=== PATIENT | male | born 1980 | race Caucasian/White ===

== ENCOUNTER 2020-10-12 16:40 | Emergency (ER) | payer OTHER, SELFPAY ==
[2020-10-12 17:00] VITALS: BP 124/90; PULSE 102; RESP 14; TEMP 36.2; O2SAT 99; BMI 23.6
--- NOTE | 2020-10-12 17:12 | HMH.EDUTC ---
[facility] Disposition Clinical Impression: Exposure to COVID-19 virus Disposition: Home, Self-Care Condition on Discharge: Good Instructions: Preventing the Spread of Coronavirus Discharge Instructions Additional Instructions: You have been tested for COVID19. Please isolate yourself as if you are positive until test results received. Referrals: Thierry Carrillo MD [Primary Care Provider] - Time of Disposition: 17:14 Medical Decision Making - Kel Inquiry Pt receiving controlled substance: No Orders (Tests/Meds): ORDERS Category Date Time Status Covid-19 Nasal PCR ([facility]) Routine Lab 10/12/20 16:44 Ordered [facility] HPI - General Stated complaint: cov test Time Seen by Provider: 10/12/20 17:12 - History of Present Illness Provider Complaint: Cough, congestion, runny nose, sore throat X 4 days. Exposed to COVID19 last week. No fever. No vomiting or diarrhea. Onset (ago): day(s) (4) Relieving factors: none Exacerbating factors: none Associated symptoms: denies other symptoms Treatments prior to arrival: none - Related Data Previous Rx's Medication Instructions Recorded Penicillin V Potassium 500 mg PO Q6H #28 tab 09/28/18 Penicillin V Potassium 500 mg PO Q6H 7 Days #28 tab 04/25/19 Allergies Allergy/AdvReac Type Severity Reaction Status Date / Time No Known Allergies Allergy Unverified 08/11/17 14:35 [facility] History - Hepatitis A Screen Attestation statement:: This patient has been screened for Hepatitis A risk factors. I have reviewed the patient's past medical history: Yes Medical History: Denies:: Diabetes Mellitus Type 1, Diabetes Mellitus Type 2 - Social History Smoking Status: Current every day smoker Tobacco Type: cigarettes # Packs/Day (cigarettes): 1 Alcohol Intake: never Occupational Status: employed Housing: house ROS Obtained: Yes All systems reviewed & no additional complaints - Constitutional Constitutional: Reports body ache, Reports chills, Reports headache(s) - ENT Ears, Nose, Mouth, and Throat: Reports nasal congestion, Reports sore throat - Respiratory Respiratory: Reports cough Physical Exam - General General appearance: alert, in no apparent distress - Head Head exam: normocephalic - Eye Eye exam: Present: PERRL - ENT ENT exam: Present: normal oropharynx - Respiratory Respiratory exam: Present: normal lung sounds bilaterally - Cardiovascular Cardiovascular exam: Present: regular rate, normal rhythm - Neurological Exam Neurological exam: Present: alert, oriented X3 - Psychiatric Psychiatric exam: Present: normal affect, normal mood - Skin Skin exam: Present: warm, dry, intact
[2020-10-12 17:27] VITALS: BP 124/90; PULSE 102; RESP 14; TEMP 36.2; O2SAT 99
--- NOTE | 2020-10-13 09:48 | PC.NURSE ---
PT NOTIFIED OF POSITIVE COVID RESULT
== END 2020-10-12 17:30 | disposition home or self-care (01) ==
PROVIDERS: Emergency Provider Physician Assistant; PCP Family Medicine
DX: U07.1 COVID-19 (principal); F17.210 Nicotine dependence, cigarettes, uncomplicated
CPT/HCPCS: 99202; G0463; U0003

== ENCOUNTER 2021-01-14 23:14 | Emergency (ER) | payer OTHER, SELFPAY ==
--- NOTE | 2021-01-14 23:07 | ECG_ITS ---
APPROVED REPORT Exam: Resting ECG HR:98 bpm ECG Measurements Heart Rate 98 AXES NE 126 P 59 QRSd 90 QRS 26 QT 352 T 43 QTc 449 Conclusion Sinus rhythm with premature atrial complexes with aberrant conduction Possible Left atrial enlargement Borderline ECG Electronically signed by : Thierry Cline, 01/19/2021 07:35:54
[2021-01-14 23:11] VITALS: BP 148/84; PULSE 95; RESP 17; TEMP 36.7; O2SAT 98; BMI 28.7
--- NOTE | 2021-01-14 23:15 | PC.NURSE ---
Pauline at bedside one-on-one with pt d/t suicidal ideation
--- NOTE | 2021-01-14 23:17 | CT_ITS ---
PROCEDURE INFORMATION: Exam: CT Head Without Contrast Exam date and time: 01/14/21 11:17 PM Age: 40 years old Clinical indication: Injury or trauma; Other: Atempted suicide by haning; Constriction/strangulation; Consciousness not specified; Injury date: 01/14/2021; Injury details: Attempted hanging; Additional info: Attempted to hang himself, raspy voice, neck pain. No visable ligature powell TECHNIQUE: Imaging protocol: Computed tomography of the head without contrast. Radiation optimization: All CT scans at this facility use at least one of these dose optimization techniques: automated exposure control; mA and/or kV adjustment per patient size (includes targeted exams where dose is matched to clinical indication); or iterative reconstruction. COMPARISON: No relevant prior studies available. FINDINGS: Brain: Normal. No hemorrhage. Unremarkable white matter. No mass effect. Cerebral ventricles: No ventriculomegaly. Bones/joints: Unremarkable. No acute fracture. Paranasal sinuses: Visualized sinuses are unremarkable. No fluid levels. Mastoid air cells: Visualized mastoid air cells are well aerated. Soft tissues: Unremarkable. IMPRESSION: No acute intracranial abnormality.
--- NOTE | 2021-01-14 23:17 | CT_ITS ---
PROCEDURE INFORMATION: Exam: CT Neck With Contrast Exam date and time: 01/14/21 11:17 PM Age: 40 years old Clinical indication: Injury or trauma; Other: Attempted hanging; Constriction/strangulation; Injury date: 01/14/2021; Injury details: Attempted suicide by hanging; Additional info: Attempted to hang himself raspy voice, neck pain, . no visable ligature powell TECHNIQUE: Imaging protocol: Computed tomography images of the neck with contrast. Radiation optimization: All CT scans at this facility use at least one of these dose optimization techniques: automated exposure control; mA and/or kV adjustment per patient size (includes targeted exams where dose is matched to clinical indication); or iterative reconstruction. Contrast material: ISOVUE; Contrast volume: 75 ml; Contrast route: IV; COMPARISON: No relevant prior studies available. FINDINGS: Nasopharynx: Unremarkable. Oropharynx: Unremarkable. No significant tonsillar enlargement. Hypopharynx: Unremarkable. Larynx: Unremarkable. Normal epiglottis. Retropharyngeal space: Unremarkable. Submandibular/Parotid glands: Normal. Glands are normal in size. Thyroid: Normal. No enlarged or calcified nodules. Lymph nodes: Unremarkable. No lymphadenopathy. Trachea: Visualized trachea is unremarkable. Lungs: Unremarkable as visualized. Bones/joints: Unremarkable. No acute fracture. Soft tissues: Unremarkable. No significant soft tissue swelling. IMPRESSION: No acute findings.
--- NOTE | 2021-01-14 23:17 | XR_ITS ---
PROCEDURE INFORMATION: Exam: XR Chest Exam date and time: 01/14/21 11:17 PM Age: 40 years old Clinical indication: Other: Attempted suicide by hanging; Additional info: Attempted si by hanging. Raspy voice and neck pain TECHNIQUE: Imaging protocol: XR of the chest. Views: 1 view. COMPARISON: No relevant prior studies available. FINDINGS: Lungs: Minimal lingular subsegmental atelectasis. Pleural spaces: Unremarkable. No pleural effusion. No pneumothorax. Heart/Mediastinum: Unremarkable. No cardiomegaly. Bones/joints: Unremarkable. IMPRESSION: Minimal lingular subsegmental atelectasis.
--- NOTE | 2021-01-14 23:35 | PC.NURSE ---
patient up for ct
[2021-01-14 23:48] LABS: Chloride 106 mmol/L (98-107)
[2021-01-14 23:49] LABS: Potassium 3.5 mmoL/L (3.5-5.1); Sodium 139 mmol/L (136-145)
[2021-01-14 23:51] LABS: Alanine Aminotransferase 26 U/L (12-78); Aspartate Amino Transferase 28 U/L (17-59); Basophils # 0.1 K/mm3 (0-0.2); Basophils % 0.9 % (0.1-2.0); Bilirubin,Unconjugated 0.2 mg/dL (0.0-1.1); Blood Urea Nitrogen 14 mg/dl (9-20); Creatinine Clearance Estimated 139 mL/min (50-200); Eosinophils # 0.2 K/mm3 (0.0-0.4); Estimated Glomerular Filt Rate 93 ml/min (>60); GFR (African American) 113 ML/MIN (>60); Hematocrit 43.6 % (42.0-52.0); Hemoglobin 14.7 g/dL (14.1-18.0); Lymphocytes # 2.4 K/mm3 (0.7-4.5); Lymphocytes % 30.2 % (10-50); Mean Corpuscular HGB Conc 33.8 g/dL (31.8-35.4); Mean Corpuscular Volume 85.9 fl (80-94); Mean Platelet Volume 7.9 fl (7.4-10.4); Monocytes # 0.7 K/mm3 (0.1-1.0); Monocytes % 8.1 % (1.7-9.3); Neutrophils # 4.8 K/mm3 (1.8-7.8); Platelet Count 266 K/mm3 (142-424); Red Blood Count 5.08 M/mm3 (4.60-6.20); Red Cell Distribution Width 13.6 % (11.5-17.5); White Blood Count 8.1 K/mm3 (4.8-10.8)
[2021-01-14 23:52] LABS: Albumin Level 4.1 g/dl (3.5-5.0); Alkaline Phosphatase 125 U/L (38-126); Anion Gap 11.5 mEq/L (5-15); Bilirubin,Direct 0.3 mg/dl (0.0-0.4); Bilirubin,Indirect 0.3 mg/dL (0.0-0.9); Bilirubin,Total 0.6 mg/dl (0.2-1.3); Calcium 8.6 mg/dl (8.4-10.2); Carbon Dioxide 25 mmol/L (22.0-30.0); Glucose 158 mg/dl (74-100); Total Protein,Serum 7.1 g/dl (6.3-8.2)
--- NOTE | 2021-01-14 23:52 | PC.NURSE ---
Pauline at bedside one-on-one with pt d/t suicidal ideation
--- NOTE | 2021-01-14 23:53 | PC.NURSE ---
patient back in room from ct
[2021-01-14 23:54] VITALS: BP 126/87; PULSE 83; RESP 18; O2SAT 96
--- NOTE | 2021-01-14 23:55 | PC.NURSE ---
pt placed in 1-on-1 obs with staff at bedside.
[2021-01-14 23:58] LABS: Acetaminophen < 10 ug/ml (10-30); Ethyl Alcohol < 10 mg/dl (0-10); Salicylate < 1.0 mg/dL (2.0-20.0)
--- NOTE | 2021-01-15 00:05 | HMH.EDPSYCH ---
ED Disposition Clinical Impression: Self-harm Depression Qualifiers: Depression Type: major depressive disorder Major depression recurrence: unspecified whether recurrent Active/Remission status: remission status unspecified Qualified Code(s): F32.9 - Major depressive disorder, single episode, unspecified Disposition: Xfer Psychiatric Hosp Condition on Discharge: Good Referrals: Thierry Carrillo MD [Primary Care Provider] - - Critical Care Critical Care Time: No Attestation: On 01/14/21, the high probability of a clinically significant, sudden or life threatening deterioration of the following system(s) required my full and direct attention, intervention and personal management. The time I documented below is in addition to time spent performing reported procedures but includes the following listed in this critical care notation. Medical Decision Making - Medical Records Medical records reviewed: Yes: I reviewed the patient's medical records. - Kel Inquiry Pt receiving controlled substance: No Vital Signs: 01/14/21 23:11 01/14/21 23:54 01/15/21 00:25 Temperature 98.1 F Temperature Source Oral Pulse Rate 83 82 Pulse Rate [Right Brachial] 95 H Respiratory Rate 17 18 17 Blood Pressure 126/87 130/90 Blood Pressure [Right Arm] 148/84 H Blood Pressure Mean [Right Arm] 105 Blood Pressure Source Automatic Cuff Automatic Cuff Blood Pressure Source [Right Arm] Automatic Cuff Blood Pressure Position Supine Blood Pressure Position [Right Arm] Sitting 02 Sat by Pulse Oximetry 98 96 96 Oxygen Delivery Method Room Air Room Air 01/15/21 00:46 Temperature Temperature Source Pulse Rate 81 Pulse Rate [Right Brachial] Respiratory Rate 19 Blood Pressure 120/81 Blood Pressure [Right Arm] Blood Pressure Mean [Right Arm] Blood Pressure Source Automatic Cuff Blood Pressure Source [Right Arm] Blood Pressure Position Sitting Blood Pressure Position [Right Arm] 02 Sat by Pulse Oximetry 96 Oxygen Delivery Method Room Air - Lab Data Lab results reviewed: Yes: I reviewed the patient's lab results. Lab Results 01/14/21 23:10: WBC 8.1, RBC 5.08, Hgb 14.7, Hct 43.6, MCV 85.9, MCH 29.0, MCHC 33.8, RDW 13.6, Plt Count 266, MPV 7.9, Neut % (Auto) 59.0, Lymph % (Auto) 30.2, [place] % (Auto) 8.1, Eos % (Auto) 2.0, Baso % (Auto) 0.9, Neut # (Auto) 4.8, Lymph # (Auto) 2.4, [place] # (Auto) 0.7, Eos # (Auto) 0.2, Baso # (Auto) 0.1 01/14/21 23:10: Sodium 139, Potassium 3.5, Chloride 106, Carbon Dioxide 25, Anion Gap 11.5, BUN 14, Creatinine 0.90, Estimated Creat Clear 139, Estimated GFR 93, Est GFR ( Amer) 113, Glucose 158 H, Calcium 8.6, Total Bilirubin 0.6, Direct Bilirubin 0.3, Conjugated Bilirubin 0.0, Indirect Bilirubin 0.3, Unconjugated Bilirubin 0.2, AST 28, ALT 26, Alkaline Phosphatase 125, Troponin I < 0.01, Total Protein 7.1, Albumin 4.1, Salicylates < 1.0 L, Acetaminophen < 10 L 01/14/21 23:10: Plasma/Serum Alcohol < 10 Result diagrams: 01/14/21 23:10 01/14/21 23:10 Orders (Tests/Meds): ED MEDICATIONS Discontinued Medications Generic Name Dose Route Start Last Admin Trade Name Freq PRN Reason Stop Dose Admin Iopamidol 75 ml 01/15/21 00:05 01/14/21 23:40 Iopamidol-370 (76%);100ml Bottle IV 01/15/21 00:06 75 ml ONCE ONE Administration Sodium Chloride 10 ml 01/15/21 00:05 01/14/21 23:40 Sodium Chloride 0.9% 10ml Syr (Rad Only) IV 01/15/21 00:06 10 ml ONCE ONE Administration ORDERS Category Date Time Status Drug Screen,Urine Stat Lab 01/15/21 00:41 Received Troponin I Q3H Lab 01/15/21 02:30 Ordered Troponin I Q3H Lab 01/15/21 05:30 Ordered Urinalysis and Microscopic Stat Lab 01/15/21 00:41 Received - Radiology Data #1 Image(s): Chest Image Reviewed: Yes I reviewed the patient's radiology image Preliminary Findings: Normal/NAD - CT Data CT Scan: Head, Other (soft tissue neck ) Time Received: 00:[address] Reviewed: Yes: I have viewed
[2021-01-15 00:10] LABS: Troponin I < 0.01 ng/ml (0.00-0.034)
[2021-01-15 00:25] VITALS: BP 130/90; PULSE 82; RESP 17; O2SAT 96
--- NOTE | 2021-01-15 00:25 | INFXCTL.NOTE ---
faxed paperwork to pumper helper talisha salas
[2021-01-15 00:45] LABS: Microscopic, Urine URINE MICROSCOPIC (MICROSCOPIC)
[2021-01-15 00:46] VITALS: BP 120/81; PULSE 81; RESP 19; O2SAT 96
[2021-01-15 00:54] LABS: Appearance,Urine CLEAR (Clear); Bilirubin,Urine Negative (Negative); Blood, Urine 1+ (Negative); Color,Urine YELLOW (Yellow); Glucose,Urine (UA) Negative (Negative); Ketones,Urine Negative (Negative); Leukocyte Esterase,Urine Negative (Negative); Nitrate,Urine Negative (Negative); PH,Urine 5.5 (5.0-8.5); Protein,Urine Negative (Negative)
[2021-01-15 00:58] LABS: Bacteria,Urine Trace /lpf; Calcium Oxalate Crystals,Urine Trace /lpf; Mucus,Urine 1+ /lpf
[2021-01-15 01:01] VITALS: BP 133/92; PULSE 89; RESP 22; O2SAT 96
[2021-01-15 01:05] LABS: Barbiturates Screen,Urine Negative ng/ml (<200); Benzodiazepines Screen,Urine Negative ng/ml (<200)
[2021-01-15 01:07] LABS: Cannabinoid Screen,Urine Positive ng/ml (<50); Cocaine Screen,Urine Negative ng/ml (<300)
[2021-01-15 01:08] LABS: Methadone Screen,Urine Negative ng/ml (<300)
[2021-01-15 01:09] LABS: Opiate Screen,Urine Negative ng/ml (<300); Phencyclidine Screen,Urine Negative ng/ml (<25)
[2021-01-15 01:18] VITALS: BP 133/92; PULSE 89; RESP 22; TEMP 36.6; O2SAT 96
[2021-01-19 20:21] LABS: Amphetamine Positive (.); Amphetamine (GC/MS) 2366 ng/mL (Cutoff=500); Amphetamines Positive (.); Methamphetamine Positive (.); Methamphetamine (GC/MS) >3000 ng/mL (Cutoff=500)
== END 2021-01-15 01:29 ==
PROVIDERS: Emergency Provider Emergency Medicine; PCP Family Medicine
DX: T14.91XA Suicide attempt, initial encounter (principal); X83.8XXA Intentional self-harm by other specified means, initial encounter; Y92.019 Unspecified place in single-family (private) house as the place of occurrence of the external cause; F32.9 Major depressive disorder, single episode, unspecified; F17.210 Nicotine dependence, cigarettes, uncomplicated
CPT/HCPCS: 70450; 70491; 71045; 80048; 80076; 80305; 80324; 80329; 81001; 84484; 85025; 93005; 99284; Q9967

== ENCOUNTER 2021-06-04 09:58 | Emergency (ER) | payer OTHER, SELFPAY ==
[2021-06-04 09:58] VITALS: BP 163/97; PULSE 85; RESP 20; TEMP 36.4; O2SAT 100; BMI 25.1
--- NOTE | 2021-06-04 10:06 | ECG_ITS ---
APPROVED REPORT Exam: Resting ECG HR:74 bpm ECG Measurements Heart Rate 74 AXES TX 132 P 43 QRSd 86 QRS 39 QT 378 T 60 QTc 419 Conclusion Normal sinus rhythm Normal ECG Electronically signed by : Thierry Cline MD 06/05/2021 21:21:24
[2021-06-04 10:13] VITALS: BMI 25.1
--- NOTE | 2021-06-04 10:13 | CT_ITS ---
PROCEDURE: CT ABDOMEN PELVIS W CON CLINICAL INDICATION: epigastric pain, nausea COMPARISON: No exams were available for comparison TECHNIQUE: IV Contrast: 75ML Isovue 370 Oral Contrast None Axial images obtained with sagittal and coronal reformats. All CT scans at the facility use one or more dose reduction, viz: automated exposure control, ma/kV adjustment per patient size (including targeted exams where dose is matched to indication, i.e. head), or iterative reconstruction technique. FINDINGS: LOWER THORAX: Dependent changes are present in the posterior [place] thoraces on both sides. ABDOMEN & PELVIS: There is a subcapsular area of decreased attenuation measuring 4 mm in the left hepatic lobe anteriorly and an 7 mm additional subcapsular area decreased attenuation left lobe inferiorly and anteriorly suggesting small hepatic cysts. The larger area could be due to focal fatty infiltration. The spleen, adrenal glands, and pancreas have an unremarkable appearance. Gallbladder is somewhat distended with at least 2 stones. There is mild prominence of the biliary radicles. The common hepatic duct is slightly prominent at 8 mm. No renal or ureteral calculi. There are small periportal lymph nodes. Prior appendectomy. No intestinal obstruction or free air. No evidence of diverticulitis. No pelvic mass or abnormal fluid collection. There is a pars defect on the left at L5 with 4 mm anterolisthesis of L5. No acute bony anomalies. Small sclerotic focus is present in the left ilium medially at 4 mm benign-appearing. IMPRESSION: 1. Cholelithiasis with mildly distended gallbladder. There is mild prominence of the biliary radicles and mild dilatation of the common hepatic duct at 8 mm. 2. Other nonacute findings as described above. 3. Dependent changes in both lung bases posteriorly. Dictated by: Ramiro Chu MD 06/04/2021 12:00 Ramiro Chu MD in [place] 06/04/2021 12:00
--- NOTE | 2021-06-04 10:20 | HMH.EDGENADL ---
ED Disposition Clinical Impression: Cholelithiasis Qualifiers: Cholelithiasis location: gallbladder Cholecystitis presence: without cholecystitis Biliary obstruction: without biliary obstruction Qualified Code(s): K80.20 - Calculus of gallbladder without cholecystitis without obstruction Disposition: Home, Self-Care Condition on Discharge: Good Instructions: DI for Gallstones, Fat-Restricted Diet Additional Instructions: Make appointment to see Dr. Mac, surgeon, as an outpatient. Call today to make that appointment. Low-fat diet. Percocet as needed for pain. Zofran as needed for nausea. Return to the emergency department if severe pain, intractable vomiting, fever, or jaundice. Prescriptions: Oxycodone HCl/Acetaminophen [Percocet 5/325mg tablet] 1 tab PO Q6HP PRN #10 tablet PRN Reason: Moderate To Severe Pain Transmission Status: Sent to [facility] Ondansetron [Zofran 4mg ODT] 4 mg PO TIDP PRN #10 tab PRN Reason: Nausea And Vomiting Transmission Status: Pending to [facility] Referrals: ProviderLaure MD [Primary Care Provider] - Samuel Mac MD [Staff Physician] - - Critical Care Critical Care Time: No Attestation: On 06/04/21, the high probability of a clinically significant, sudden or life threatening deterioration of the following system(s) required my full and direct attention, intervention and personal management. The time I documented below is in addition to time spent performing reported procedures but includes the following listed in this critical care notation. Medical Decision Making - Kel Inquiry Pt receiving controlled substance: Yes Kel was queried for this patient: Yes Risks and benefits of using a controlled substance: were not discussed with pt by me Vital Signs: 06/04/21 09:58 06/04/21 10:26 06/04/21 11:30 Temperature 97.5 F L Temperature Source Oral Pulse Rate 69 50 L Pulse Rate [Right Radial] 85 Respiratory Rate 20 15 14 Blood Pressure 131/84 143/85 H Blood Pressure [Right Arm] 163/97 H Blood Pressure Mean 105 109 Blood Pressure Mean [Right Arm] 119 Blood Pressure Source [Right Arm] Automatic Cuff Blood Pressure Position [Right Arm] Supine 02 Sat by Pulse Oximetry 100 100 96 Oxygen Delivery Method Room Air - Lab Data Lab Results 06/04/21 10:10: WBC 13.2 H, RBC 4.87, Hgb 14.8, Hct 45.1, MCV 92.7, MCH 30.5, MCHC 32.9, RDW 13.7, Plt Count 282, MPV 8.5, Neut % (Auto) 79.8, Lymph % (Auto) 13.5, [place] % (Auto) 5.2, Eos % (Auto) 0.8, Baso % (Auto) 0.6, Neut # (Auto) 10.6 H, Lymph # (Auto) 1.8, [place] # (Auto) 0.7, Eos # (Auto) 0.1, Baso # (Auto) 0.1 06/04/21 10:10: Sodium 140, Potassium 3.7, Chloride 106, Carbon Dioxide 27, Anion Gap 10.7, BUN 15, Creatinine 0.80, Estimated Creat Clear 131, Estimated GFR 106, Est GFR ( Amer) 128, Glucose 131 H, Calcium 9.2, Total Bilirubin 0.6, AST 29, ALT 24, Alkaline Phosphatase 120, Total Protein 7.5, Albumin 4.2, Globulin 3.3 H, Albumin/Globulin Ratio 1.3, Lipase 85 06/04/21 10:10: Troponin I < 0.01 Result diagrams: 06/04/21 10:10 06/04/21 10:10 Orders (Tests/Meds): ED MEDICATIONS Discontinued Medications Generic Name Dose Route Start Last Admin Trade Name Freq PRN Reason Stop Dose Admin Hydromorphone HCl 1 mg 06/04/21 10:19 06/04/21 10:21 Hydromorphone 2mg/Ml Syringe IV 06/04/21 10:20 1 mg ONCE ONE Administration Hydromorphone HCl 1 mg 06/04/21 10:20 06/04/21 10:35 Hydromorphone 2mg/Ml Syringe IV 06/04/21 10:21 Not Given ONCE ONE Iopamidol 75 ml 06/04/21 11:02 06/04/21 11:03 Iopamidol-370 (76%);100ml Bottle IV 06/04/21 11:03 75 ml ONCE ONE Administration Ketorolac Tromethamine 30 mg 06/04/21 10:14 06/04/21 10:15 Ketorolac 30mg/Ml Vial IV 10/12/21 10:15 30 mg ONCE ONE Administration Morphine Sulfate 4 mg 06/04/21 10:17 06/04/21 10:26 Morphine 4mg/Ml Syringe IV 06/04/21 10:18 Not Given ONCE ONE Ondansetr
[2021-06-04 10:21] LABS: Basophils # 0.1 K/mm3 (0-0.2); Basophils % 0.6 % (0.1-2.0); Eosinophils # 0.1 K/mm3 (0.0-0.4); Eosinophils % 0.8 % (0.1-12.0); Hematocrit 45.1 % (42.0-52.0); Hemoglobin 14.8 g/dL (14.1-18.0); Lymphocytes # 1.8 K/mm3 (0.7-4.5); Lymphocytes % 13.5 % (10-50); Mean Corpuscular HGB Conc 32.9 g/dL (31.8-35.4); Mean Corpuscular Hemoglobin 30.5 pg (27.0-31.2); Mean Corpuscular Volume 92.7 fl (80-94); Mean Platelet Volume 8.5 fl (7.4-10.4); Monocytes # 0.7 K/mm3 (0.1-1.0); Monocytes % 5.2 % (1.7-9.3); Neutrophils # 10.6 K/mm3 (1.8-7.8); Neutrophils % 79.8 % (37.0-80.0); Platelet Count 282 K/mm3 (142-424); Red Blood Count 4.87 M/mm3 (4.60-6.20); Red Cell Distribution Width 13.7 % (11.5-17.5); White Blood Count 13.2 K/mm3 (4.8-10.8)
[2021-06-04 10:26] VITALS: BP 131/84; PULSE 69; RESP 15; O2SAT 100
--- NOTE | 2021-06-04 10:34 | PC.NURSE ---
notified rad of ct order, spoke with dominick
[2021-06-04 10:35] LABS: Alanine Aminotransferase 24 U/L (12-78); Albumin Level 4.2 g/dl (3.5-5.0); Albumin/Globulin Ratio 1.3 (1.1-1.8); Alkaline Phosphatase 120 U/L (38-126); Anion Gap 10.7 mEq/L (5-15); Aspartate Amino Transferase 29 U/L (17-59); Bilirubin,Total 0.6 mg/dl (0.2-1.3); Blood Urea Nitrogen 15 mg/dl (9-20); Calcium 9.2 mg/dl (8.4-10.2); Carbon Dioxide 27 mmol/L (22.0-30.0); Chloride 106 mmol/L (98-107); Creatinine Clearance Estimated 131 mL/min (50-200); Estimated Glomerular Filt Rate 106 ml/min (>60); GFR (African American) 128 ML/MIN (>60); Globulin 3.3 g/dL (1.3-3.2); Glucose 131 mg/dl (74-100); Lipase 85 U/L (23-300); Potassium 3.7 mmoL/L (3.5-5.1); Sodium 140 mmol/L (136-145); Total Protein,Serum 7.5 g/dl (6.3-8.2)
[2021-06-04 10:48] LABS: Troponin I < 0.01 ng/ml (0.00-0.034)
--- NOTE | 2021-06-04 10:52 | PC.NURSE ---
Pt is being taken to CT by crystal.
--- NOTE | 2021-06-04 11:09 | PC.NURSE ---
Pt returned from rad.
[2021-06-04 11:30] VITALS: BP 143/85; PULSE 50; RESP 14; O2SAT 96
[2021-06-04 12:01] VITALS: BP 150/96; PULSE 50; RESP 14; O2SAT 97
[2021-06-04 12:19] LABS: Microscopic, Urine URINE MICROSCOPIC (MICROSCOPIC)
[2021-06-04 12:40] LABS: Appearance,Urine CLEAR (Clear); Bilirubin,Urine Negative (Negative); Blood, Urine TRACE-I (Negative); Color,Urine YELLOW (Yellow); Glucose,Urine (UA) Negative (Negative); Ketones,Urine Negative (Negative); Leukocyte Esterase,Urine Negative (Negative); Nitrate,Urine Negative (Negative); PH,Urine 5.5 (5.0-8.5); Protein,Urine Negative (Negative); Urobilinogen,Urine 0.2 EU/dl (0.2)
[2021-06-04 12:45] VITALS: BP 128/89; PULSE 59; RESP 16; TEMP 36.4; O2SAT 95
[2021-06-04 12:54] LABS: RBC,Urine Occasional #/hpf (0-3)
[2021-06-04 13:08] LABS: Amphetamine/Metha Screen,Urine Positive ng/ml (<1000); Barbiturates Screen,Urine Negative ng/ml (<200); Benzodiazepines Screen,Urine Negative ng/ml (<200); Cannabinoid Screen,Urine Positive ng/ml (<50); Cocaine Screen,Urine Negative ng/ml (<300); Methadone Screen,Urine Negative ng/ml (<300); Opiate Screen,Urine Positive ng/ml (<300); Phencyclidine Screen,Urine Negative ng/ml (<25)
== END 2021-06-04 12:45 | disposition home or self-care (01) ==
PROVIDERS: Emergency Provider Emergency Medicine
DX: K80.20 Calculus of gallbladder without cholecystitis without obstruction (principal); Z72.0 Tobacco use
CPT/HCPCS: 74177; 80053; 80305; 81001; 83690; 84484; 85025; 93005; 96374; 96375; 96376; 99283; J2405; Q9967

== ENCOUNTER 2021-06-06 07:04 | Observation (INO) | payer OTHER, SELFPAY ==
[2021-06-06] VITALS (26 sets, daily range): BP systolic 104–161; BP diastolic 54–95; PULSE 58–88; RESP 14–22; TEMP 36.3–43; O2SAT 92–99; BMI 25.1
--- NOTE | 2021-06-06 07:15 | US_ITS ---
PROCEDURE: US GALLBLADDER CLINICAL INDICATION: abd pain COMPARISON: No exams were available for comparison FINDINGS: Pancreas: Not well delineated due to overlying bowel gas Liver: Unremarkable. There is appropriate direction of blood flow within a non dilated portal vein. Right kidney: Unremarkable appearing. No hydronephrosis. Gallbladder: There is sludge present within the gallbladder with at least 1 stone present. Other smaller stones may be present but obscured by the sludge. No gallbladder wall thickening, pericholecystic fluid, or biliary dilatation. Common bile duct is slightly prominent at 7 mm.. Gallbladder is slightly distended at 9 x 4 cm. IMPRESSION: Mildly distended gallbladder with sludge and stones. Mild prominence of the common bile duct at 7 mm. Dictated by: Ramiro Chu MD 06/06/2021 09:23 Ramiro Chu MD in [place] 06/06/2021 09:23
[2021-06-06 07:34] LABS: Basophils # 0.1 K/mm3 (0-0.2); Basophils % 0.8 % (0.1-2.0); Eosinophils # 0.2 K/mm3 (0.0-0.4); Eosinophils % 1.2 % (0.1-12.0); Hematocrit 49.6 % (42.0-52.0); Hemoglobin 16.5 g/dL (14.1-18.0); Lymphocytes # 1.9 K/mm3 (0.7-4.5); Lymphocytes % 13.8 % (10-50); Mean Corpuscular HGB Conc 33.3 g/dL (31.8-35.4); Mean Corpuscular Hemoglobin 30.7 pg (27.0-31.2); Mean Platelet Volume 8.7 fl (7.4-10.4); Monocytes # 1.1 K/mm3 (0.1-1.0); Monocytes % 7.9 % (1.7-9.3); Neutrophils # 10.6 K/mm3 (1.8-7.8); Neutrophils % 76.3 % (37.0-80.0); Platelet Count 299 K/mm3 (142-424); Red Blood Count 5.39 M/mm3 (4.60-6.20); Red Cell Distribution Width 13.5 % (11.5-17.5); White Blood Count 13.9 K/mm3 (4.8-10.8)
[2021-06-06 07:40] LABS: Chloride 101 mmol/L (98-107); Sodium 138 mmol/L (136-145)
[2021-06-06 07:43] LABS: Alanine Aminotransferase 20 U/L (12-78); Albumin Level 4.3 g/dl (3.5-5.0); Albumin/Globulin Ratio 1.1 (1.1-1.8); Alkaline Phosphatase 125 U/L (38-126); Amylase 80 U/L (30-110); Aspartate Amino Transferase 27 U/L (17-59); Bilirubin,Total 1.4 mg/dl (0.2-1.3); Blood Urea Nitrogen 7 mg/dl (9-20); Calcium 9.2 mg/dl (8.4-10.2); Carbon Dioxide 28 mmol/L (22.0-30.0); Creatinine Clearance Estimated 150 mL/min (50-200); Estimated Glomerular Filt Rate 124 ml/min (>60); GFR (African American) 150 ML/MIN (>60); Globulin 3.8 g/dL (1.3-3.2); Glucose 122 mg/dl (74-100); Lipase 39 U/L (23-300); Total Protein,Serum 8.1 g/dl (6.3-8.2)
--- NOTE | 2021-06-06 08:19 | HMH.EDGENADL ---
ED Disposition Clinical Impression: Acute calculous cholecystitis Disposition: Admitted as Observation Condition on Discharge: Fair - Critical Care Critical Care Time: No Attestation: On 06/06/21, the high probability of a clinically significant, sudden or life threatening deterioration of the following system(s) required my full and direct attention, intervention and personal management. The time I documented below is in addition to time spent performing reported procedures but includes the following listed in this critical care notation. Medical Decision Making - Kel Inquiry Pt receiving controlled substance: Yes Kel was queried for this patient: Yes Risks and benefits of using a controlled substance: were not discussed with pt by me Vital Signs: 06/06/21 07:04 Temperature 97.8 F Temperature Source Oral Pulse Rate [Radial] 88 Respiratory Rate 22 Blood Pressure [Right Arm] 161/95 H Blood Pressure Mean [Right Arm] 117 Blood Pressure Position [Right Arm] Sitting 02 Sat by Pulse Oximetry 98 Oxygen Delivery Method Room Air - Lab Data Lab Results 06/06/21 07:23: WBC 13.9 H, RBC 5.39, Hgb 16.5, Hct 49.6, MCV 92.0, MCH 30.7, MCHC 33.3, RDW 13.5, Plt Count 299, MPV 8.7, Neut % (Auto) 76.3, Lymph % (Auto) 13.8, [place] % (Auto) 7.9, Eos % (Auto) 1.2, Baso % (Auto) 0.8, Neut # (Auto) 10.6 H, Lymph # (Auto) 1.9, [place] # (Auto) 1.1 H, Eos # (Auto) 0.2, Baso # (Auto) 0.1 06/06/21 07:23: Sodium 138, Potassium 4.0, Chloride 101, Carbon Dioxide 28, Anion Gap 13.0, BUN 7 L D, Creatinine 0.70, Estimated Creat Clear 150, Estimated GFR 124, Est GFR ( Amer) 150, Glucose 122 H, Calcium 9.2, Total Bilirubin 1.4 H, AST 27, ALT 20, Alkaline Phosphatase 125, Total Protein 8.1, Albumin 4.3, Globulin 3.8 H, Albumin/Globulin Ratio 1.1, Amylase 80, Lipase 39 06/06/21 09:18: SARS-CoV-2 (PCR) Not detected, Influenza A Untype (PCR) Not detected, Influenza Type B (PCR) Not detected Result diagrams: 06/06/21 07:23 06/06/21 07:23 Orders (Tests/Meds): ED MEDICATIONS Generic Name Dose Route Start Last Admin Trade Name Freq PRN Reason Stop Dose Admin Ertapenem 1 gm/ Sodium 50 mls @ 100 mls/hr 06/06/21 08:45 06/06/21 08:38 Chloride IV 06/20/21 08:44 100 mls/hr Q24H ARLENE Administration Discontinued Medications Generic Name Dose Route Start Last Admin Trade Name Freq PRN Reason Stop Dose Admin Sodium Chloride 1,000 mls @ 999 mls/hr 06/06/21 07:30 06/06/21 07:25 Sod Chlor 0.9% 1000ml Bag IV 06/06/21 08:30 999 mls/hr .Q1H1M ARLENE Administration Ketorolac Tromethamine 30 mg 06/06/21 07:24 06/06/21 07:25 Ketorolac 30mg/Ml Vial IV 06/06/21 07:25 30 mg ONCE ONE Administration Ondansetron HCl 4 mg 06/06/21 07:24 06/06/21 07:25 Ondansetron 4mg/2ml Vial IV 06/06/21 07:25 4 mg ONCE ONE Administration - US Data US Images: Gallbladder Findings Narrative: As per [facility] procedure, ultrasound report received from batch room technician: Dilated gallbladder with sludge and stones. Thickened gallbladder wall. No pericholecystic fluid. Dilated common bile duct. No stones seen in duct. - Physician Consults Physician Consulted: [place] Time: 09:15 Reason -: Admission, Surgical Eval/Care Comment/Response: Agrees to admit the patient to the hospital. We discussed the patient's clinical information, including history, exam, laboratory and radiology results and ED course. Per hospital procedure, I will write temporary bridge inpatient orders on the patient. Specific orders requested by the admitting physician: N.p.o. General Adult HPI - General Chief complaint: Abdominal Pain Stated complaint: abdomal and back pain Time Seen by Provider: 06/06/21 08:19 Mode of Arrival: Ambulatory Limitations: No Limitations Description of Symptoms (Recalled from ER Triage Doc. by RN): to ed per pvt car with c/o epigastric pain radiating into back. pt seen 2 days ago with same and dx with gallstones has an ap
--- NOTE | 2021-06-06 08:31 | PC.NURSE ---
Surgeon called for Dr Costa
[2021-06-06 09:21] LABS: Coronavirus 19, PCR Not Detected (NotDetected); Influenza A, PCR Not Detected (NotDetected); Influenza B, PCR Not Detected (NotDetected)
--- NOTE | 2021-06-06 09:33 | PC.NURSE ---
pre op called advising they would get pt for surgery in about hr and a half
--- NOTE | 2021-06-06 09:33 | PC.NURSE ---
0919 bed assignment requested, room 209 all staff notified
--- NOTE | 2021-06-06 10:03 | HMH.PHAINT ---
MEDICATION RECONCILIATION COMPLETE USING LIST FROM ED DISCHARGE PACKET, EXTERNAL PHARMACY FILL HISTORY, AND CALL TO [facility].
--- NOTE | 2021-06-06 10:26 | P.CONPHA_ITS ---
[facility] Pharmacy VTE Monitoring - Patient Demographics Admission date: 06/06/21 Report Date: 06/06/21 Time: 10:26 Allergies/Adverse Reactions: Patient Allergies No Known Allergies Allergy (Unverified 08/11/17 14:35) Height: 1.75 m Weight: 77.111 kg Patient Problems: Current Active Problems Acute calculous cholecystitis (Acute) - VTE Risk Labs: VTE Related Lab Results Hgb 16.5 g/dL (14.1-18.0) 06/06/21 07:23 Hct 49.6 % (42.0-52.0) 06/06/21 07:23 Plt Count 299 K/mm3 (142-424) 06/06/21 07:23 BUN 7 mg/dl (9-20) L D 06/06/21 07:23 Creatinine 0.70 mg/dl (0.66-1.25) 06/06/21 07:23 Estimated Creat Clear 150 mL/min (50-200) 06/06/21 07:23 Clinical Trial Participant: No - Prophylaxis VTE Prophylaxis Ordered?: Yes Types of VTE Prophylaxis: TEDS Knee High
--- NOTE | 2021-06-06 10:27 | PC.NURSE ---
pt changed into hospital gown,
--- NOTE | 2021-06-06 11:39 | P.PN_ITS ---
[facility] Anesthesia Checklist - Structural Data Admitted From: Home Planned Operative Procedure/s: suzanne solitario Consent for Planned Operative Procedure(s) Verified: Yes - Airway Assessment C-Spine Mobility Assessed: Yes TMJ Mobility Assessed: Yes Dentition: Good Dentition - Neurological Assessment Level of Consciousness: Awake, Alert, Appropriate - Anesthesia Plan Anesthesia Risk discussed: Yes Anesthesia Plan: Verified ASA Class: II Anesthesia Type: General [facility] History I have reviewed the patient's past medical history: Yes Medical History: Denies:: Diabetes Mellitus Type 1, Diabetes Mellitus Type 2 *Have you ever received a pneumonia vaccine?: No *Have you received a flu vaccine this season?: No Anesthesia experience/problems:: none - *Social History Smoking Status: Current every day smoker Tobacco Type: cigarettes # Packs/Day (cigarettes): 1 Alcohol Intake: never Substance Use Type: denies use *Occupational Status:: employed Housing: house *Travel in the last 8 weeks: None Family Hx:: Non-contributory
--- NOTE | 2021-06-06 12:55 | HMH.GSHP ---
HPI HPI: This is a 41-year-old gentleman who reported to the emergency department with increasing abdominal pain (plain the right upper quadrant and epigastric region. He was recently diagnosed with mild calculus cholecystitis and was scheduled to see general surgery as an outpatient. Secondary to significant increase in symptomatology he states that he was unable to wait that long . No fevers. No jaundice. Truncated HPI from emergency department evaluation is forwarded below. Although there is document of possible sphincter of Oddi surgery , the patient describes likely ERCP. Ordered from emergency department evaluation: Epigastric and right upper quadrant pain that started 2 days ago. Seen by me in this emergency department the morning that it started, awakening him from sleep. His pain at that time was subxiphoid epigastric. CT scan showed gallstones with a mildly distended gallbladder and dilation of hepatic radicles. Patient had a prior history of sphincter of Oddi surgery. Liver enzymes were normal. White blood cell count was 13.2, no fever. At the time of discharge patient had some soreness remaining in his epigastrium, but severe pain had resolved. He was discharged with instructions for low-fat diet, pain medication and nausea medication prescriptions, surgical referral. He says that he was doing okay until last night when pain again began to worsen. Pain is also now present in his right upper quadrant/flank area. He says he also had a subjective fever last night. Denies vomiting. He has an appointment to see the surgeon on 06/10/2021. [facility] History Medical History: Denies:: Diabetes Mellitus Type 1, Diabetes Mellitus Type 2 *Have you ever received a pneumonia vaccine?: No *Have you received a flu vaccine this season?: No Anesthesia experience/problems:: none - *Social History Smoking Status: Current every day smoker Tobacco Type: cigarettes # Packs/Day (cigarettes): 1 Alcohol Intake: never Substance Use Type: denies use *Occupational Status:: employed Housing: house *Travel in the last 8 weeks: None Family Hx:: Non-contributory Review of Systems - Constitutional Denies chills - Eyes Denies change in vision - ENT Denies difficulty swallowing - *Cardiovascular Denies chest pain - *Respiratory Denies cough - *Gastrointestinal Reports abdominal pain - *Genitourinary Denies blood in urine - *Musculoskeletal Denies deformity - Integumentary/Breasts Denies new lesions - *Neurologic Denies abnormal speech - Psychiatric Denies anxiety - Endocrine Denies cold intolerance - Hematologic/Lymphatic Denies easy bleeding - Allergic/Immunologic Denies wheezing Meds Home Medications Medication Instructions Recorded Confirmed Type Ondansetron [Zofran 4mg ODT] 4 mg PO TIDP PRN #10 tab 06/04/21 06/06/21 Rx Oxycodone HCl/Acetaminophen 1 tab PO Q6HP PRN #10 tab 06/04/21 06/06/21 Rx [Percocet 5/325mg tablet] Allergies Allergy/AdvReac Type Severity Reaction Status Date / Time No Known Allergies Allergy Unverified 08/11/17 14:35 Exam Vital signs and Labs for Last 24 Hours: Temp Pulse Resp BP Pulse Ox 98 F 78 16 124/74 94 L 06/06/21 11:26 06/06/21 11:26 06/06/21 11:26 06/06/21 11:26 06/06/21 10:00 Laboratory Results - last 24 hr 06/06/21 07:23: WBC 13.9 H, RBC 5.39, Hgb 16.5, Hct 49.6, MCV 92.0, MCH 30.7, MCHC 33.3, RDW 13.5, Plt Count 299, MPV 8.7, Neut % (Auto) 76.3, Lymph % (Auto) 13.8, [place] % (Auto) 7.9, Eos % (Auto) 1.2, Baso % (Auto) 0.8, Neut # (Auto) 10.6 H, Lymph # (Auto) 1.9, [place] # (Auto) 1.1 H, Eos # (Auto) 0.2, Baso # (Auto) 0.1 06/06/21 07:23: Sodium 138, Potassium 4.0, Chloride 101, Carbon Dioxide 28, Anion Gap 13.0, BUN 7 L D, Creatinine 0.70, Estimated Creat Clear 150, Estimated GFR 124, Est GFR ( Amer) 150, Glucose 122 H, Calcium 9.2, Total Bilirubin 1.4 H, AST 27, ALT 20, Alkaline Phosphatase 125, Total P
--- NOTE | 2021-06-06 14:11 | P.OP_ITS ---
Date of procedure: 06/06/21 Pre-op Diagnosis:: Acute calculus cholecystitis Post-op Diagnosis:: Gangrenous acute calculus cholecystitis Procedure performed:: Laparoscopic cholecystectomy Surgeon:: Dav Whitehead MD LEATHER STRETCHER:: Alirio Negron Anesthesia: PHANI Estimated blood loss (mL): 15 Operative findings:: Severe acute calculus cholecystitis with gangrenous changes throughout. Operative note:: After informed consent was obtained, the patient was taken to the operating room and placed in the supine position. General anesthesia was induced and the abdomen was prepped and draped in a sterile fashion. After infiltration with local anesthetic an infraumbilical incision was made. A Veress needle was placed in position. The abdomen was insufflated. A 5 mm optical trocar was placed in position. Under direct visualization, a 12 mm trocar was placed in the subxiphoid position and 2 additional 5 mm trocars were placed in the right upper quadrant. The gallbladder which was noted to be gangrenous throughout was elevated up and over the liver margin. The tissue around the cystic duct was carefully dissected. This dissection was very difficult secondary to gangrenous changes. 3 clips were placed proximally and the duct was transected with harmonic clover. Harmonic clover were then utilized to dissect the gallbladder away from the liver margin with careful attention to the control of the cystic artery. The gallbladder was placed in a retrieval bag and removed through the subxiphoid trocar site. The right upper quadrant was thoroughly irrigated. No active bleeding or bile leak was noted. Fascia at the subxiphoid trocar site was reapproximated utilizing the NeoClose device. The remaining trocars were removed. All wounds were irrigated and skin was closed with 4-0 Monocryl in a subcuticular fashion. Steri-Strips were applied. The patient's anesthetic agents were reversed and extubation was completed prior to transfer to recovery in stable condition. Condition: stable Disposition: PACU Specimens:: Gallbladder Complications:: No immediate
--- NOTE | 2021-06-06 14:14 | P.PN_ITS ---
[facility] Anesthesia Record Part I Intake, IV Amount: 1,300 Estimated blood loss (mL): 10 Urine output (mL): 0 Blood Pressure: 115/80 SaO2: 95 Pulse Rate: 73 Respiratory Rate: 16 Temperature: 98.8 F Patient is:: Drowsy, Stable Stable to PACU at:: 14:15
[2021-06-07] VITALS: BP 96/52; PULSE 71; RESP 18; TEMP 36.9; O2SAT 95
--- NOTE | 2021-06-07 03:58 | PC.NURSE ---
Pt has slept in intervals this shift. Pt BLT lungs CTA, bowel sounds present in all 4 quadrants. Pt IV patent and infusing well. Pt on RA, Pt medicated per MAR for pain. Pt has ambulated in room and had good urinary output. Pt denies SOA, N/V, or pain at this time. VSS
[2021-06-07 04:00] VITALS: BP 128/73; PULSE 79; RESP 18; TEMP 36.8; O2SAT 95
[2021-06-07 04:49] VITALS: BMI 25.4
[2021-06-07 06:37] LABS: Basophils # 0.1 K/mm3 (0-0.2); Basophils % 0.3 % (0.1-2.0); Eosinophils # 0.1 K/mm3 (0.0-0.4); Eosinophils % 0.4 % (0.1-12.0); Hematocrit 42.9 % (42.0-52.0); Lymphocytes # 1.4 K/mm3 (0.7-4.5); Lymphocytes % 7.4 % (10-50); Mean Corpuscular HGB Conc 33.6 g/dL (31.8-35.4); Mean Corpuscular Hemoglobin 30.8 pg (27.0-31.2); Mean Corpuscular Volume 91.7 fl (80-94); Mean Platelet Volume 8.8 fl (7.4-10.4); Monocytes # 1.3 K/mm3 (0.1-1.0); Monocytes % 7.2 % (1.7-9.3); Neutrophils # 15.5 K/mm3 (1.8-7.8); Neutrophils % 84.7 % (37.0-80.0); Platelet Count 299 K/mm3 (142-424); Red Blood Count 4.68 M/mm3 (4.60-6.20); Red Cell Distribution Width 13.6 % (11.5-17.5); White Blood Count 18.3 K/mm3 (4.8-10.8)
[2021-06-07 06:42] LABS: Chloride 105 mmol/L (98-107); Potassium 4.5 mmoL/L (3.5-5.1); Sodium 140 mmol/L (136-145)
[2021-06-07 06:45] LABS: Alanine Aminotransferase 39 U/L (12-78); Albumin Level 3.6 g/dl (3.5-5.0); Albumin/Globulin Ratio 1.1 (1.1-1.8); Alkaline Phosphatase 103 U/L (38-126); Anion Gap 12.5 mEq/L (5-15); Aspartate Amino Transferase 42 U/L (17-59); Bilirubin,Total 0.6 mg/dl (0.2-1.3); Blood Urea Nitrogen 8 mg/dl (9-20); Carbon Dioxide 27 mmol/L (22.0-30.0); Creatinine Clearance Estimated 177 mL/min (50-200); Estimated Glomerular Filt Rate 148 ml/min (>60); GFR (African American) 179 ML/MIN (>60); Globulin 3.3 g/dL (1.3-3.2); Total Protein,Serum 6.9 g/dl (6.3-8.2)
[2021-06-07 06:46] LABS: Calcium 8.6 mg/dl (8.4-10.2); Glucose 143 mg/dl (74-100); Hemoglobin 14.4 g/dL (14.1-18.0); MANUAL DIFFERENTIAL MANUAL DIFFERENTIAL (MANUAL DIFF)
--- NOTE | 2021-06-07 06:53 | HMH.GSPN ---
Subjective Patient reports: feels better Progress Note: A&P (1) Acute calculous cholecystitis Status: Acute (2) Acute gangrenous cholecystitis Status: Acute Assessment and Plan for All Diagnoses:: Overall, doing well status post laparoscopic cholecystectomy. Follow-up morning labs Increase ambulation Likely discharge home later today Exam Vital signs and Labs for Last 24 Hours: Temp Pulse Resp BP Pulse Ox 98.2 F 79 18 128/73 95 06/07/21 04:00 06/07/21 04:00 06/07/21 04:00 06/07/21 04:00 06/07/21 04:00 Laboratory Results - last 24 hr 06/06/21 07:23: WBC 13.9 H, RBC 5.39, Hgb 16.5, Hct 49.6, MCV 92.0, MCH 30.7, MCHC 33.3, RDW 13.5, Plt Count 299, MPV 8.7, Neut % (Auto) 76.3, Lymph % (Auto) 13.8, [place] % (Auto) 7.9, Eos % (Auto) 1.2, Baso % (Auto) 0.8, Neut # (Auto) 10.6 H, Lymph # (Auto) 1.9, [place] # (Auto) 1.1 H, Eos # (Auto) 0.2, Baso # (Auto) 0.1 06/06/21 07:23: Sodium 138, Potassium 4.0, Chloride 101, Carbon Dioxide 28, Anion Gap 13.0, BUN 7 L D, Creatinine 0.70, Estimated Creat Clear 150, Estimated GFR 124, Est GFR ( Amer) 150, Glucose 122 H, Calcium 9.2, Total Bilirubin 1.4 H, AST 27, ALT 20, Alkaline Phosphatase 125, Total Protein 8.1, Albumin 4.3, Globulin 3.8 H, Albumin/Globulin Ratio 1.1, Amylase 80, Lipase 39 06/06/21 09:18: SARS-CoV-2 (PCR) Not detected, Influenza A Untype (PCR) Not detected, Influenza Type B (PCR) Not detected 06/07/21 06:23: WBC 18.3 H D, RBC 4.68, Hgb 14.4 D, Hct 42.9, MCV 91.7, MCH 30.8, MCHC 33.6, RDW 13.6, Plt Count 299, MPV 8.8, Neut % (Auto) 84.7 H, Lymph % (Auto) 7.4 L, [place] % (Auto) 7.2, Eos % (Auto) 0.4, Baso % (Auto) 0.3, Neut # (Auto) 15.5 H, Lymph # (Auto) 1.4, [place] # (Auto) 1.3 H, Eos # (Auto) 0.1, Baso # (Auto) 0.1 06/07/21 06:23: Sodium 140, Potassium 4.5, Chloride 105, Carbon Dioxide 27, Anion Gap 12.5, BUN 8 L, Creatinine 0.60 L, Estimated Creat Clear 177, Estimated GFR 148, Est GFR ( Amer) 179, Glucose 143 H, Calcium 8.6, Total Bilirubin 0.6, AST 42 D, ALT 39 D, Alkaline Phosphatase 103, Total Protein 6.9, Albumin 3.6 D, Globulin 3.3 H, Albumin/Globulin Ratio 1.1 I & O for Last 24 hours: Intake & Output 06/04/21 06/05/21 06/06/21 06/07/21 11:59 11:59 11:59 11:59 Intake Total 1660 / 1660 Output Total 750 / 750 Balance 910 / 910 Weight 170 lb 172 lb - Constitutional no acute distress - *Routine Respiratory Exam Absent: respiratory distress - *Routine Cardiovascular Exam Present: RRR - *Routine Abdominal Exam Present: soft Comments: Dressings in place
[2021-06-07 07:27] LABS: Lymphocytes % 6 % (10-50); Monocytes % 11 % (2-9); Neutrophils % 83 % (42-76); Platelet Estimate Normal; Total Cells Counted 100
[2021-06-07 08:00] VITALS: BP 134/86; PULSE 80; RESP 20; TEMP 36.6; O2SAT 96
[2021-06-07 12:00] VITALS: BP 143/84; PULSE 69; RESP 20; TEMP 36.6; O2SAT 97
--- NOTE | 2021-06-07 13:59 | HMH.DCSUM ---
General - General Admission date:: 06/06/21 Discharge date: 06/07/21 HPI HPI: This is a 41-year-old gentleman who reported to the emergency department with increasing abdominal pain (plain the right upper quadrant and epigastric region. He was recently diagnosed with mild calculus cholecystitis and was scheduled to see general surgery as an outpatient. Secondary to significant increase in symptomatology he states that he was unable to wait that long . No fevers. No jaundice. Truncated HPI from emergency department evaluation is forwarded below. Although there is document of possible sphincter of Oddi surgery , the patient describes likely ERCP. Forwarded from emergency department evaluation: Epigastric and right upper quadrant pain that started 2 days ago. Seen by me in this emergency department the morning that it started, awakening him from sleep. His pain at that time was subxiphoid epigastric. CT scan showed gallstones with a mildly distended gallbladder and dilation of hepatic radicles. Patient had a prior history of sphincter of Oddi surgery. Liver enzymes were normal. White blood cell count was 13.2, no fever. At the time of discharge patient had some soreness remaining in his epigastrium, but severe pain had resolved. He was discharged with instructions for low-fat diet, pain medication and nausea medication prescriptions, surgical referral. He says that he was doing okay until last night when pain again began to worsen. Pain is also now present in his right upper quadrant/flank area. He says he also had a subjective fever last night. Denies vomiting. He has an appointment to see the surgeon on 06/10/2021. Hospital Course Hospital Course: The patient underwent laparoscopic cholecystectomy. Please see operative report for detail. To gangrenous calculus cholecystitis confirmed. Postoperatively, he progressed well. He remained afebrile with stable normal vital signs and was deemed appropriate for discharge on the afternoon of postoperative day one. He was discharged with a short course of Augmentin secondary to the gangrenous nature of his cholecystitis. Objective Vital signs: Temp Pulse Resp BP Pulse Ox 97.9 F 69 20 143/84 H 97 06/07/21 12:00 06/07/21 12:00 06/07/21 12:00 06/07/21 12:00 06/07/21 12:00 no acute distress - *Routine HEENT Exam Head: Present: normocephalic Eye: Present: EOMI ENT: Present: mucous membranes moist - *Routine Neck Exam Present: full ROM - Routine Chest/Breast/Axilla Exam Chest wall: Absent: tenderness - *Routine Respiratory Exam Absent: respiratory distress - *Routine Cardiovascular Exam Present: RRR - *Routine Abdominal Exam Present: soft, tenderness - *Routine Rectal Exam Patient deferred: visual exam - *Routine Exam Patient deferred: penile exam - *Routine Extremities Exam Present: full ROM - Routine Back/Spine/Pelvis Exam Back/Spine: Present: full ROM - *Routine Skin Exam Absent: erythema - *Routine Neurological Exam Present: alert - Routine Psychiatric Exam Present: normal affect Results Labs on day of discharge: Labs from last 24 hours 06/07/21 06/07/21 06:23 06:23 WBC 18.3 H D RBC 4.68 Hgb 14.4 D Hct 42.9 MCV 91.7 MCH 30.8 MCHC 33.6 RDW 13.6 Plt Count 299 MPV 8.8 Neut % (Auto) 84.7 H Lymph % (Auto) 7.4 L [place] % (Auto) 7.2 Eos % (Auto) 0.4 Baso % (Auto) 0.3 Neut # (Auto) 15.5 H Lymph # (Auto) 1.4 [place] # (Auto) 1.3 H Eos # (Auto) 0.1 Baso # (Auto) 0.1 Total Counted 100 Neutrophils % (Manual) 83 H Lymphocytes % (Manual) 6 L Monocytes % (Manual) 11 H Platelet Estimate Normal RBC Morphology Not Reportable Sodium 140 Potassium 4.5 Chloride 105 Carbon Dioxide 27 Anion Gap 12.5 BUN 8 L Creatinine 0.60 L Estimated Creat Clear 177 Estimated GFR 148 Est GFR ( Amer) 179 Glucose 143 H Calcium 8.6 T
--- NOTE | 2021-06-11 08:28 | HMH.ANESII ---
[facility] Anesthesia Record Part II Discharge Time: 15:00 Destination: floor PACU nurse assessment reviewed?: Yes Patient Condition:: Good Anesthesia Complications:: None Swallowing reflex intact?: Yes Cyanosis?: No Blood Pressure: 110/63 Pulse Rate: 61 Temperature: 97.8 F Mental Status: Alert & Oriented Pain level:: 3 Nausea and/or vomitting:: None Intake, IV Amount: 1,500
[2021-06-11 08:29] VITALS: BP 110/63; PULSE 61; TEMP 36.6
== END 2021-06-07 14:35 | disposition home or self-care (01) ==
LOC: ER 08:34 → 2ND 09:28
PROVIDERS: Emergency Medicine; Admitting Provider Surgery; Emergency Provider Emergency Medicine; Visit Provider Surgery
PROC: 0FT44ZZ Resection of Gallbladder, Percutaneous Endoscopic Approach (ICD-10-PCS; CPT 47562; principal; 2021-06-06 12:30)
DX: K81.2 Acute cholecystitis with chronic cholecystitis (principal); F17.210 Nicotine dependence, cigarettes, uncomplicated; Z20.822 Contact with and (suspected) exposure to COVID-19; K82.A1 Gangrene of gallbladder in cholecystitis
CPT/HCPCS: 47562; 36415; 76705; 80053; 82150; 83690; 85007; 85025; 88304; 96365; 96367; 99284; C9803; G0378; J1335; J2405; J2710; U0003; U0005

== ENCOUNTER 2022-10-07 08:19 | Emergency (ER) | payer OTHER, SELFPAY ==
[2022-10-07 08:50] VITALS: BP 136/89; PULSE 99; RESP 16; TEMP 37.1; O2SAT 99; BMI 25.1
--- NOTE | 2022-10-07 09:06 | EXP.UTC ---
Discharge Plan Disposition Patient Disposition: Home, Self-Care Condition: Good Prescriptions Prescriptions: New amoxicillin-pot clavulanate 875-125 mg Tablet 1 tab PO Q12H Qty: 20 0RF Referrals Follow up/Referrals: Trenton Aquino MD [Primary Care Provider] - See instructions Activity Restrictions/Add. Instructions Additional Instructions/Restrictions: *Monitor Temp, Over the counter Motrin or Tylenol as directed/as needed Tylenol every 4 hours and Motrin every 6 hours (as long as your family doctor has told you that you can take it) for fever or pain. and straight to ER if unable to lower temp less than 101.0 after medication given *Warm salt water gargles may help to soothe the throat *Throat Lozenges? *Warm fluids like tea with honey may help to soothe the throat? *Sleep elevated *Humidifier/Vaporizer Your throat swab was sent for culture. Those results are typically sent to your primary care. Be sure to follow up in 2-3 days with your family doctor/primary care physician if no improvement so they can review those result and treat if necessary. If you don?t have a primary care doctor, I recommend you get one but in the mean time, you will have to return to a walk in clinic Follow up IMMEDIATELY for new or worsening symptoms or no Noticeable improvement over the next 48-72 hours. 911 for difficulty breathing or swallowing Clinical Impressions Clinical Impression: Acute bacterial tonsillitis Stand Alone Forms Stand Alone Forms: Work/School Release Instructions Patient Instructions: Sore Throat Discharge ED Provider: Jeanie Mims [facility] General Stated complaint: Sore throat,left earache Mode of Arrival: Ambulatory Source of Information: Patient Limitations: No Limitations Time Seen by Provider: 10/07/22 09:06 Description of Symptoms (Recalled from Triage Doc. by RN): sore throat, ear aches, fever HEENT Symptoms (Recalled from RN notes): Yes Resp Symptoms (Recalled from RN notes): No Skin Symptoms (Recalled from RN notes): No MS Symptoms (Recalled from RN notes): No Functional Status (Recalled from RN notes): n/a History of Present Illness Provider Complaint: Patient states that since Thursday he has been having sore throat, pain in his left ear and fever States that it has continued to get worse since Thursday and it feels like he is swallowing glass States that today he was feeling achy so he came in to get checked Related Data Previous Rx's Medication Instructions Recorded amoxicillin 875 mg-potassium 1 tab PO Q12H #20 tabs 10/07/22 clavulanate 125 mg tablet Allergies Allergy/AdvReac Type Severity Reaction Status Date / Time No Known Allergies Allergy Verified 10/07/22 09:00 Worker's Comp Is this a Worker's Comp case?: No PFSH PFS Disclaimer: The information contained in this section may have been updated after the patient was seen, as this information can be updated by other users. Social History Smoking Status: Current every day smoker tobacco type: cigarettes packs per day: 1 second hand exposure: Yes alcohol intake: never substance use type: denies use current occupational status: employed Travel in the last 8 weeks: None housing: house ROS Obtained: Yes All systems reviewed & no additional complaints except as documented and Yes Systems reviewed as appropriate & no additional complaints except as documented Constitutional Constitutional: Reports system reviewed and no additional complaints, except as documented, Reports as per HPI, Reports fever(s) and Reports headache(s) ENT Ears, Nose, Mouth, and Throat: Reports system reviewed and no additional complaints, except as documented, Reports as per HPI, Reports otalgia, Reports headache(s) and Reports sore throat Cardiovascular Cardiovascular: Reports system reviewed and no additional complaints, except as documented and Reports as pe
[2022-10-07 09:07] LABS: UTC Influenza A Antigen Negative (Negative); UTC Strep Screen (Rapid) Negative (Negative)
[2022-10-07 09:08] LABS: UTC Influenza B Antigen Negative (Negative)
[2022-10-07 09:50] LABS: Monoscreen (Rapid) Negative (Negative)
[2022-10-07 10:15] VITALS: BP 136/89; PULSE 99; RESP 20; TEMP 37.1; O2SAT 99
== END 2022-10-07 10:15 | disposition home or self-care (01) ==
PROVIDERS: Emergency Provider Nurse Practitioner; PCP Emergency Medicine
DX: J03.80 Acute tonsillitis due to other specified organisms (principal)
CPT/HCPCS: 86318; 87804; 87880; 99212; 99214; G0463

== ENCOUNTER 2022-10-07 18:23 | Emergency (ER) | payer OTHER, SELFPAY ==
[2022-10-07 18:30] VITALS: BP 124/100; PULSE 107; O2SAT 97
--- NOTE | 2022-10-07 18:30 | PC.NURSE ---
JIL APONTE at for pt linneaal
--- NOTE | 2022-10-07 18:32 | CT_ITS ---
PROCEDURE INFORMATION: Exam: CT Neck With Contrast Exam date and time: 10/07/2022 7:16 PM Age: 42 years old Clinical indication: Dyspnea / difficulty breathing; Additional info: SOA and sore throat TECHNIQUE: Imaging protocol: Computed tomography of the neck with contrast. Radiation optimization: All CT scans at this facility use at least one of these dose optimization techniques: automated exposure control; mA and/or kV adjustment per patient size (includes targeted exams where dose is matched to clinical indication); or iterative reconstruction. Contrast material: ISOVUE; Contrast volume: 75 ml; Contrast route: IV; Other protocol: This patient has received 0 known CTs and 0 known cardiac nuclear medicine studies in the 12 months prior to the current study. COMPARISON: CT SOFT TISSUE NECK W CON 01/14/2021 11:40 PM FINDINGS: Pharynx: There is significant bilateral tonsillar soft tissue swelling. Larynx: Epiglottis is normal in size Prevertebral and retropharyngeal spaces: Unremarkable. Salivary glands: Normal. Glands are normal in size. Thyroid: Normal. No enlarged or calcified nodules. Lymph nodes: There is moderate bilateral jugular chain lymphadenopathy. Trachea: Visualized trachea is unremarkable. Lungs: Unremarkable as visualized. Bones/joints: Mild disc bulge and uncovertebral spurring produce at least mild spinal stenosis at the C4-C5 and C5-C6 disc levels. Cervical spine is otherwise unremarkable. Soft tissues: Unremarkable. No significant soft tissue swelling. Other findings: No suspicious mass lesion seen. IMPRESSION: 1. Significant findings of bilateral tonsillitis. No evidence of abscess. 2. Mild degenerative changes of the cervical spine
--- NOTE | 2022-10-07 18:34 | HMH.EDGENADL ---
Discharge Plan Disposition Patient Disposition: Home, Self-Care Condition: Good Prescriptions Prescriptions: New prednisone 20 mg tablet 20 mg PO BID 7 Days Qty: 14 0RF No Action amoxicillin-pot clavulanate 875-125 mg Tablet 1 tab PO Q12H Qty: 20 0RF Referrals Follow up/Referrals: Provider,Referral, MD [Referring] - See instructions Activity Restrictions/Add. Instructions Additional Instructions/Restrictions: Drink plenty of fluids. Return for difficulty breathing or other concerns. Clinical Impressions Clinical Impression: Pharyngitis Discharge ED Provider: Ashok Arredondo General Adult HPI General Chief complaint: Upper Respiratory Infection Stated complaint: soa Time Seen by Provider: 10/07/22 18:29 History of Present Illness HPI narrative: Patient presents with a 3-day history of sore throat now complains of difficulty breathing through his throat as of earlier this afternoon. He was seen in the urgent treatment center at this facility earlier today and prescribed antibiotics. He states strep and mono were both negative at that time. He states since that time he had the development of new symptoms as outlined above. Symptoms are described as moderate without exacerbating or alleviating factors though he does complain of pain with swallowing. Related Data Previous Rx's Medication Instructions Recorded amoxicillin 875 mg-potassium 1 tab PO Q12H #20 tabs 10/07/22 clavulanate 125 mg tablet prednisone 20 mg tablet 20 mg PO BID 7 days #14 tabs 10/07/22 Allergies Allergy/AdvReac Type Severity Reaction Status Date / Time No Known Allergies Allergy Verified 10/07/22 18:40 [facility] Disclaimer: The information contained in this section may have been updated after the patient was seen, as this information can be updated by other users. Social History Smoking Status: Current every day smoker tobacco type: cigarettes packs per day: 1 second hand exposure: Yes alcohol intake: never substance use type: denies use current occupational status: employed Travel in the last 8 weeks: None housing: house ROS Obtained: Yes All systems reviewed & no additional complaints except as documented Physical Exam General General appearance: alert and in no apparent distress Head Head exam: atraumatic, normocephalic and normal inspection Eye Eye exam: Present normal appearance, PERRL and EOMI ENT ENT exam: Present other (There is pharyngeal erythema. His voice is not muffled. He appears to be handling his secretions adequately although he states is unable to swallow. There is no drooling.) Neck Neck exam: Present normal inspection, full ROM and trachea midline; Absent meningismus or lymphadenopathy Chest Chest inspection: Present normal inspection and symmetric chest wall rise; Absent tenderness Respiratory Respiratory exam: Present normal lung sounds bilaterally; Absent respiratory distress Cardiovascular Cardiovascular exam: Present regular rate and normal rhythm; Absent JVD Abdominal Exam Abdominal exam: Present soft and normal bowel sounds; Absent distention, tenderness or guarding Extremities Exam Extremities exam: Present normal inspection, full ROM and normal capillary refill; Absent calf tenderness Back Exam Back exam: Present normal inspection; Absent tenderness Neurological Exam Neurological exam: Present alert and oriented X3 Psychiatric Psychiatric exam: Present normal affect and normal mood Skin Skin exam: Present warm, dry, intact and normal color Lymphatic Lymphatic Findings: no adenopathy Medical Decision Making Medical Records Medical records reviewed: Yes I reviewed the patient's medical records. Kel Inquiry Pt receiving controlled substance: No Kel was queried for this patient: No Vital Signs: 10/07/22 18:36 10/07/22 18:30 Temperature 99.6 F Temperature Source Oral Pulse Rate 107 H Pulse
[2022-10-07 18:36] VITALS: BP 141/89; PULSE 107; RESP 16; TEMP 37.6; O2SAT 97; BMI 25.7
--- NOTE | 2022-10-07 18:49 | PC.NURSE ---
PT IS RESTING IN BED,CALL LIGHT AT BEDSIDE
[2022-10-07 20:50] VITALS: BP 140/78; PULSE 98; RESP 16; TEMP 37.2; O2SAT 98
== END 2022-10-07 20:52 | disposition home or self-care (01) ==
PROVIDERS: Emergency Provider Emergency Medicine; PCP Emergency Medicine
DX: J02.9 Acute pharyngitis, unspecified (principal); R06.02 Shortness of breath; F17.210 Nicotine dependence, cigarettes, uncomplicated
CPT/HCPCS: 70491; 96374; 96375; 99284; Q9967

== ENCOUNTER → 2023-06-18 22:36 | Outpatient (CLI) | payer OTHER, SELFPAY ==
[2023-06-18 18:54] LABS: Coronavirus 19, PCR Not Detected (NotDetected); Influenza A, PCR Not Detected (NotDetected); Influenza B, PCR Not Detected (NotDetected)
[2023-06-18 19:38] LABS: Basophils # 0.1 K/mm3 (0-0.2); Basophils % 0.4 % (0.1-2.0); Eosinophils # 0.2 K/mm3 (0.0-0.4); Eosinophils % 1.4 % (0.1-12.0); Hematocrit 48.6 % (42.0-52.0); Hemoglobin 16.8 g/dL (14.1-18.0); Lymphocytes # 1.7 K/mm3 (0.7-4.5); Lymphocytes % 13.4 % (10-50); Mean Corpuscular HGB Conc 34.6 g/dL (31.8-35.4); Mean Corpuscular Hemoglobin 31.4 pg (27.0-31.2); Mean Corpuscular Volume 90.7 fl (80-94); Mean Platelet Volume 10.4 fl (7.4-10.4); Monocytes # 1.6 K/mm3 (0.1-1.0); Monocytes % 12.5 % (1.7-9.3); Neutrophils % 72.2 % (37.0-80.0); Platelet Count 212 K/mm3 (142-424); Red Blood Count 5.36 M/mm3 (4.60-6.20); Red Cell Distribution Width 13.6 % (11.5-17.5); White Blood Count 12.4 K/mm3 (4.8-10.8)
[2023-06-18 21:57] LABS: Alanine Aminotransferase 32 U/L (12-78); Albumin Level 4.5 g/dl (3.5-5.0); Albumin/Globulin Ratio 1.3 (1.1-1.8); Alkaline Phosphatase 158 U/L (38-126); Aspartate Amino Transferase 33 U/L (17-59); Bilirubin,Total 1.2 mg/dl (0.2-1.3); Blood Urea Nitrogen 12 mg/dl (9-20); Calcium 9.3 mg/dl (8.4-10.2); Carbon Dioxide 22 mmol/L (22.0-30.0); Chloride 101 mmol/L (98-107); Estimated Glomerular Filt Rate 105 ml/min (>60); GFR (African American) 127 ML/MIN (>60); Globulin 3.4 g/dL (1.3-3.2); Glucose 56 mg/dl (74-100); Sodium 138 mmol/L (136-145); Total Protein,Serum 7.9 g/dl (6.3-8.2)
[2023-06-18 22:13] LABS: 25-OH Vitamin D, Total 46.3 ng/mL (30-100)
== END ==
LOC: LAB.DROPOF 22:38
PROVIDERS: PCP Internal Medicine; Visit Provider Internal Medicine
DX: R51.9 Headache, unspecified (principal); R68.83 Chills (without fever); R05.1 Acute cough; R42 Dizziness and giddiness
CPT/HCPCS: 80053; 82306; 85025; 87636

== ENCOUNTER 2023-12-05 08:58 | Emergency (ER) | payer OTHER, SELFPAY ==
--- NOTE | 2023-12-05 08:59 | ECG_ITS ---
APPROVED REPORT Exam: Resting ECG HR:77 bpm ECG Measurements Heart Rate 77 AXES VT 140 P 54 QRSd 90 QRS 46 QT 367 T 19 QTc 399 Conclusion SINUS RHYTHM Electronically signed by : GALE KENT, 12/05/2023 15:26:48
[2023-12-05 09:09] VITALS: BP 167/101; PULSE 85; RESP 20; TEMP 36.7; O2SAT 98; BMI 25.8
--- NOTE | 2023-12-05 09:11 | XR_ITS ---
PROCEDURE INFORMATION: Exam: XR Chest Exam date and time: 12/05/2023 9:39 AM Age: 43 years old Clinical indication: Pain; Angina pectoris; Additional info: Cp right sided radiating, non traumatic TECHNIQUE: Imaging protocol: Radiologic exam of the chest. Views: 1 view. COMPARISON: CR XR CHEST PORTABLE 01/14/2021 11:31 PM FINDINGS: Lungs: Stable left base lateral scarring. No focal infiltrates. Pleural spaces: Unremarkable. No pleural effusion. No pneumothorax. Heart/Mediastinum: Unremarkable. No cardiomegaly. Bones/joints: Unremarkable. IMPRESSION: No acute findings.
--- NOTE | 2023-12-05 09:15 | HMH.EDCP ---
Discharge Plan Disposition Patient Disposition: Home, Self-Care Prescriptions Prescriptions: New prednisone 20 mg tablet 40 mg PO DAILY 5 Days Qty: 10 0RF No Action amoxicillin-pot clavulanate 500-125 mg tablet 1 tab PO BID 14 Days Qty: 28 0RF Referrals Follow up/Referrals: Provider,Referral, [Primary Care Provider] - See instructions Activity Restrictions/Add. Instructions Additional Instructions/Restrictions: Call your family doctor to establish care for this visit to the emergency department and schedule follow-up within 48 hours to ensure improvement. If you have any worsening of your condition or any other concerning signs or symptoms, return to the emergency department or your primary care doctor for further evaluation. Clinical Impressions Clinical Impression: Radiculopathy, Chest pain Discharge ED Provider: Ashok Harris General Chief Complaint: Chest Pain Stated Complaint: chest pain Time Seen by Provider: 12/05/23 09:05 Mode of Arrival: Ambulatory Source of Information: Patient Limitations: No Limitations Description of Symptoms (Recalled from ER Triage Doc. by RN): pt to ed c/o right sided chest pain that started at approx 0400. pt states the pain woke him from sleep. pt reports the pain radiating down his right arm and into his neck. pt denies nausea. pt denies cardiac hx. History of Present Illness HPI narrative: 43-year-old male history of severe anxiety, appendectomy, cholecystectomy presenting with chest pain. Patient states he has been studying for a test that he was planning on taking today on 12/04. Last night, chest pain started. His right-sided, radiated to his right shoulder, associated with tingling in his right hand. No nausea, vomiting, diaphoresis, neurologic deficits. Has never had anything like this in the past. He does have severe anxiety, but states he has never had anxiety present like this, so became concerned. Family at bedside corroborating story. Was sick with viral gastroenteritis within the past couple of weeks, has since recovered. Pain is mild to moderate, radiates down his right arm, sharp, causes numbness in his hand. Not positional, not exertional. Related Data Previous Rx's Medication Instructions Recorded amoxicillin 500 mg-potassium 1 tab PO BID 14 days #28 tabs 06/18/23 clavulanate 125 mg tablet prednisone 20 mg tablet 40 mg (2 x 20 mg) PO DAILY 5 days 12/05/23 #10 tabs Allergies Allergy/AdvReac Type Severity Reaction Status Date / Time No Known Allergies Allergy Verified 06/18/23 13:53 [facility] Disclaimer: The information contained in this section may have been updated after the patient was seen, as this information can be updated by other users. Social History Smoking Status: Current every day smoker tobacco type: cigarettes packs per day: 1 second hand exposure: Yes alcohol intake: never substance use type: denies use current occupational status: employed Travel in the last 8 weeks: None housing: house ROS Obtained: Yes All systems reviewed & no additional complaints except as documented Physical Exam General General appearance: alert and in no apparent distress Head Head exam: atraumatic and normocephalic Eye Eye exam: Present normal appearance, PERRL and EOMI ENT ENT exam: Present mucous membranes moist Neck Neck exam: Present normal inspection, full ROM and trachea midline Chest Chest inspection: Present normal inspection and symmetric chest wall rise Respiratory Respiratory exam: Present normal lung sounds bilaterally; Absent respiratory distress, wheezes, stridor, accessory muscle use or prolonged expiratory phase Cardiovascular Cardiovascular exam: Present regular rate and normal rhythm Abdominal Exam Abdominal exam: Present soft; Absent distention, tenderness, guarding, rebound or rigidity Extremities Exam Extremities exam: Absent edema Neurological Exam Neurological exam: Present alert, oriented X3, CN II-XII intact and normal gait; Absent motor sensory deficit Skin Skin exam: Present warm and dry; Absent diaphoresis or erythema HEART Score HEART Score HEART Score assessment performed?: Yes HEART Score: 0 Critical Care Critical Care Time Critical Care Time: No Medical Decision Making Medical Records Medical records reviewed: Yes I reviewed the patient's medical records. Kel Inquiry Pt receiving controlled substance: No Kel was queried for this patient: No Vital Signs Vital Signs: 12/05/23 09:09 Temperature 98.1 F Temperature Source Oral Pulse Rate [Left Radial] 85 Respiratory Rate 20 Blood Pressure [Right Arm] 167/101 H Blood Pressure Mean [Right Arm] 123 02 Sat by Pulse Oximetry 98 Oxygen Delivery Method Room Air Lab Data Labs: Lab Results 12/05/23 09:02: WBC 7.7, RBC 5.43, Hgb 16.5, Hct 51.0, MCV 94.0, MCH 30.5, MCHC 32.4, RDW 13.7, Plt Count 209, MPV 8.3, Neut % (Auto) 59.6, Lymph % (Auto) 23.6, Price % (Auto) 12.2 H, Eos % (Auto) 2.3, Baso % (Auto) 2.3 H, Neut # (Auto) 4.6, Lymph # (Auto) 1.8, Price # (Auto) 0.9, Eos # (Auto) 0.2, Baso # (Auto) 0.2, Sodium 142, Potassium 3.5, Chloride 106, Carbon Dioxide 29, Anion Gap 10.5, BUN 16, Creatinine 1.10, Estimated Creat Clear 96, Estimated GFR 73, Est GFR ( Amer) 88, Glucose 93, Calcium 8.8, Total Bilirubin 1.0, AST 40, ALT 48, Alkaline Phosphatase 129 H, Troponin I < 0.01, NT-Pro-B Natriuret Pep 20.6, Total Protein 7.1, Albumin 4.0, Globulin 3.1, Albumin/Globulin Ratio 1.3, Lipase 53 12/05/23 09:02 12/05/23 09:02 Response Orders (Tests/Meds): ED MEDICATIONS Discontinued Medications Generic Name Dose Route Start Last Admin Trade Name Freq PRN Reason Stop Dose Admin Acetaminophen 1,000 mg 12/05/23 10:24 Acetaminophen 1,000mg/100ml Vial IV 12/05/23 10:25 ONCE ONE Aspirin 324 mg 12/05/23 09:14 12/05/23 09:29 Aspirin 81mg Chewable Tablet PO 12/05/23 09:15 324 mg ONCE ONE Administration Belladonna Alkaloids 60 ml 12/05/23 09:14 12/05/23 09:29 Belladonna Alkaloids 60 Ml Ml PO 12/05/23 09:15 60 ml ONCE ONE Administration Hydroxyzine Pamoate 50 mg 12/05/23 09:14 12/05/23 09:29 Hydroxyzine Pamoate 25mg Capsule PO 12/05/23 09:15 50 mg ONCE ONE Administration Ketorolac Tromethamine 15 mg 12/05/23 10:24 Ketorolac 30mg/Ml Vial IV 12/05/23 10:25 ONCE ONE ORDERS Category Date Time Status CXR --portable [XR chest portable] Stat Exams 12/05/23 09:11 Completed POCUS Point of Care (ER Only) Stat Exams 12/05/23 10:25 Ordered CBC w/Auto Diff [Complete Blood Count Auto Diff] Stat Lab 12/05/23 09:02 Completed CMP [Comprehensive Metabolic Panel] Stat Lab 12/05/23 09:02 Completed Lipase Stat Lab 12/05/23 09:02 Completed NT Pro Brain Natriuretic Pep. Stat Lab 12/05/23 09:02 Completed Trop I [Troponin I] Stat Lab 12/05/23 09:02 Completed Troponin I Q3H Lab 12/05/23 12:15 Ordered Troponin I Q3H Lab 12/05/23 15:15 Ordered MDM Narrative Medical Decision Narrative: 43-year-old male history of severe anxiety, appendectomy, cholecystectomy presenting with chest pain. Patient states he has been studying for a test that he was planning on taking today on 12/04. Last night, chest pain started. His right-sided, radiated to his right shoulder, associated with tingling in his right hand. No nausea, vomiting, diaphoresis, neurologic deficits. Has never had anything like this in the past. He does have severe anxiety, but states he has never had anxiety present like this, so became concerned. Family at bedside corroborating story. Was sick with viral gastroenteritis within the past couple of weeks, has since recovered. Pain is mild to moderate, radiates down his right arm, sharp, causes numbness in his hand. Not positional, not exertional. History was obtained via conversation with history obtained with patient and family. On arrival, patient hemodynamically stable, alert, oriented x4, appropriate, GCS 15, moving all extremities spontaneously, pupils equal and reactive to light. Full physical exam performed and significant for very well-appearing male in no acute distress. Lungs are clear to auscultation bilaterally, cardiac exam within normal limits. Pulses are equal and symmetric in bilateral lower extremities. No lower extremity edema. Abdomen soft, nontender, nondistended. Differential includes microvascular coronary artery disease, CHF, ACS, MS, coronary artery dissection, pneumothorax, PE, dissection, pericarditis, myocarditis, pneumothorax, aortic aneurysm, pneumonia, bronchitis, among others. Patient was given Toradol, acetaminophen, aspirin, GI cocktail for symptomatic management and correction of underlying abnormalities. Workup independently interpreted and significant for nonactionable hematologic workup including CBC, chemistry, Trope, BNP, lipase. Chest x-ray without any acute cardiopulmonary or airspace disease. Bedside [id number] cardiac ultrasound normal. See radiology read for full review of final results. Independent interpretation of EKG shows sinus rhythm 77 beats a minute no ST or T wave changes concerning for acute ischemia. OR, QRS, QT intervals within normal limits. On evaluation, patient resting comfortably in bed. Pain is almost entirely gone. Given patient presentation, workup, history, this most likely represents radiculopathy. Heart score 0. On further conversation, patient states that the pain actually starts in his hand and radiates up toward his right clavicle and into his neck. Has history of numerous neck injuries from sport. Also made worse with changes in position, I feel this is incredibly unlikely to be true cardiac pain with no cardiac history and presentation/story. Because patient at baseline without signs or symptoms of clinical decompensation, deemed appropriate for discharge. Results were relayed to patient who voiced understanding and were agreeable to outpatient management and follow up. I discussed my clinical impression with patient and answered all questions. At this time, the evidence for any other entities in the differential is insufficient to warrant any further testing or ED observation. This was explained as well. Advisory was given that persistent or worsening symptoms require further evaluation. I confirmed the understanding of this discussion.
[2023-12-05] MEDS: hydrOXYzine pamoate 25MG CAPSULE 50 MG PO (09:29)
[2023-12-05] MEDS: BELLADONNA ALKALOIDS 60 ML ML PO (09:29)
[2023-12-05] MEDS: ASPIRIN 81MG CHEWABLE TABLET 324 MG PO (09:29)
[2023-12-05 09:35] LABS: Basophils # 0.2 K/mm3 (0-0.2); Basophils % 2.3 % (0.1-2.0); Eosinophils # 0.2 K/mm3 (0.0-0.4); Eosinophils % 2.3 % (0.1-12.0); Hemoglobin 16.5 g/dL (14.1-18.0); Lymphocytes # 1.8 K/mm3 (0.7-4.5); Lymphocytes % 23.6 % (10-50); Mean Corpuscular HGB Conc 32.4 g/dL (31.8-35.4); Mean Corpuscular Hemoglobin 30.5 pg (27.0-31.2); Mean Platelet Volume 8.3 fl (7.4-10.4); Monocytes # 0.9 K/mm3 (0.1-1.0); Monocytes % 12.2 % (1.7-9.3); Neutrophils # 4.6 K/mm3 (1.8-7.8); Neutrophils % 59.6 % (37.0-80.0); Platelet Count 209 K/mm3 (142-424); Red Blood Count 5.43 M/mm3 (4.60-6.20); Red Cell Distribution Width 13.7 % (11.5-17.5); White Blood Count 7.7 K/mm3 (4.8-10.8)
[2023-12-05 09:37] LABS: Chloride 106 mmol/L (98-107)
[2023-12-05 09:38] LABS: Potassium 3.5 mmoL/L (3.5-5.1); Sodium 142 mmol/L (136-145)
[2023-12-05 09:40] LABS: Alanine Aminotransferase 48 U/L (12-78); Alkaline Phosphatase 129 U/L (38-126); Anion Gap 10.5 mEq/L (5-15); Aspartate Amino Transferase 40 U/L (17-59); Blood Urea Nitrogen 16 mg/dl (9-20); Carbon Dioxide 29 mmol/L (22.0-30.0); Creatinine Clearance Estimated 96 mL/min (50-200); Estimated Glomerular Filt Rate 73 ml/min (>60); GFR (African American) 88 ML/MIN (>60); Lipase 53 U/L (23-300)
[2023-12-05 09:41] LABS: Albumin/Globulin Ratio 1.3 (1.1-1.8); Calcium 8.8 mg/dl (8.4-10.2); Globulin 3.1 g/dL (1.3-3.2); Glucose 93 mg/dl (74-100); Total Protein,Serum 7.1 g/dl (6.3-8.2)
[2023-12-05 10:02] LABS: Troponin I < 0.01 ng/ml (0.00-0.034)
[2023-12-05 10:16] LABS: NT Pro Brain Natriuretic Pep. 20.6 pg/mL (0-125)
[2023-12-05] MEDS: KETOROLAC 30MG/ML VIAL 15 MG IV (11:01)
[2023-12-05] MEDS: ACETAMINOPHEN 1,000MG/100ML VIAL 1000 MG IV (11:01)
[2023-12-05 11:15] VITALS: BP 134/89; PULSE 64; RESP 15; TEMP 36.7
== END 2023-12-05 11:16 | disposition home or self-care (01) ==
PROVIDERS: Emergency Provider Emergency Medicine
DX: R07.9 Chest pain, unspecified (principal); M54.13 Radiculopathy, cervicothoracic region; F41.1 Generalized anxiety disorder; F17.210 Nicotine dependence, cigarettes, uncomplicated
CPT/HCPCS: 71045; 80053; 83690; 83880; 84484; 85025; 93005; 96374; 96375; 99285; J0131

== ENCOUNTER 2024-01-25 17:00 | Outpatient (RCR) | payer OTHER, SELFPAY ==
--- NOTE | 2023-12-21 18:18 | HMH.PTOPEV ---
PT Outpatient Evaluation Rehab PT Outpatient Evaluation Start: 12/21/23 16:47 Freq: Status: Active Protocol: Document 12/21/23 16:47 NISHMELISSA (Rec: 12/21/23 18:18 RAMILA [id number]) E-signed By Ana Jane, PT Outpatient Therapy Subjective History Subjective History Pt is a 43 y/o male who reports chronic left-sided neck pain for over 20 years. Pt reports gradual worsening of pain overtime. Pt states he has been experiencing left- sided occipital headaches 1x/ week. Pt denies n/v, light/ noise sensitivity or dizinnes with headaches. Pt denies distal UE symptoms/paresthesia with the exception of right arm pain and right hand numbness/tingling 2 weeks ago that lasted for only one night leading him to go to the ER. Pt denies RLE symptoms. Pt reports his BP was high at the ER but they did an EKG and chest xray without significant findings. Pt states he was sick with a stomach bug prior to onset of R arm pain but denies vomiting, states he was nauseous and had heart burn. Pt denies trauma or injury. Pt reports he was prescribed steroids at the ER which he has been taking since. Pt denies recent distal UE symptoms or paresthesia. Per reports, pt had a cervical CT with contrast on 10/07/22 with findings of Mild disc bulge and uncovertebral spurring produce at least mild spinal stenosis at the C4-C5 and C5- C6 disc levels. Cervical spine is otherwise unremarkable. Pt reports minimal to no symptoms since taking steroids other than occasional headaches and burning of the left side of his neck. 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 Pt denies further comorbidities to report. Special tests: Negative R median N tension test Mat Roller strength: 83.3# R, 84# L New diagnosis of cancer in past 12 No months? Chief Complaint Pain,Stiff Symptom Type Throb,Burning Symptoms Relieved By Prescription Meds Symptoms Aggravated By Physical Activity,Lifting Current Functional Limitations Reaching,Lifting,Desk Work/ Reading,Driving,Sleeping, Recreation Activity Symptom Description Intermittent Level of pain today (0-10) 0 Pain scale - at its best (0-10) 0 Pain scale - at its worst (0-10) 8 Cervical Eval Palpation Cervical Muscles R Cervical Paraspinal,L Cervical Paraspinal,R Suboccipital,L Suboccipital,R CT Junction,L CT Junction,L Upper Trapezius Cervical/Thoracic Palpation Findings Tenderness Flexibility Deficits Upper Trapezius Muscle Length (R) Moderate Tightness,(L) Moderate Tightness Levaetor Scapulae Muscle Length (R) Moderate Tightness,(L) Moderate Tightness Pectoralis Major Muscle Length (R) Mild Tightness,(L) Mild Tightness Pectoralis Minor Muscle Length (R) Mild Tightness,(L) Mild Tightness Passive Joint Mobility Cervical PIVM Dec: R C4/5 L C4/5 R C5/6 L C5/6 R C6/7 L C6/7 AROM Cervical Spine Extension Active Range of 55 Motion (degrees) Cervical Spine Flexion Active Range of 55 Motion (degrees) Cervical Spine Right Lateral Flexion 55 Active Range of Motion (degrees) Cervical Spine Left Lateral Flexion 60 Active Range of Motion (degrees) Cervical Spine Right Rotation Active 70 Range of Motion (degrees) Cervical Spine Left Rotation Active 80 Range of Motion (degrees) MMT Bilateral Deltoid (C5) 5 Normal Biceps Brachii Strength Grade 5 Normal Wrist Extension Strength Grade 5 Normal Triceps Brachii Strength Grade 5 Normal Wrist Flexion Strength Grade 5 Normal Extensor Pollicis Longus Strength Grade 5 Normal Finger Abduction Strength Grade 5 Normal DTR Rt Biceps 2+ Rt Brachioradialis 2+ Rt Triceps 2+ Altered Sensation Bilateral Comment equal and intact to light touch sensation Special Test C-Spine Foraminal Compression (Spurling) Negative Left,Negative Right Test C-spine Verterbral Accessory Movements Central P/A Stuart,Right P/A that Elicit Symptoms Stuart,Left P/A Stuart Shoulder/Elbow Eval Shoulder Objective Measurements Shoulder MMT Left Lower Trapezius Strength Grade 4- Good- Middle Trapezius Strength Grade 4 Good Rhomboids Strength Grade 4 Good Serratus Anterior Strength Grade 4 Good Upper Trapezius/Levator Scapulae 4 Good Shoulder Abduction Strength Grade 5 Normal Shoulder Extension Strength Grade 5 Normal Shoulder Flexion Strength Grade 5 Normal Elbow Objective Measurements Neck Disability Index Neck Disability Index Section 1: Pain Intensity I have no pain at the moment Section 2: Personal Care (washing, I can look after myself dressing, etc.) normally without causing extra pain Section 3: Lifting I can lift heavy weights without extra pain Section 4: Reading I can read as much as I want to with slight pain in my neck Section 5: Headaches I have slight headaches, which come infrequently Section 6: Concentration I can concentrate fully when I want to with no difficulty Section 7: Work I can only do my usual work, but no more Section 8: Driving I can drive my car as long as I want with slight pain in my neck Section 9: Sleeping My sleep is slightly disturbed (less than 1 hr sleepless) Section 10: Recreation I am able to engage in all my recreation activities with some pain in NDI Score 6 Outpatient Therapy Assessment Impairments Problems/Impairmments Palpation Tenderness,Impaired Range of Motion,Impaired Strength,Impaired Driving, Impaired Lifting,Impaired Recreational Activities, Impaired Work Activities, Impaired Desk/Computer Activities,Subjective C/O Pain ,Impaired Self Care/Self Management Prognosis Rehab Potential Good Clinical Impression Consistent with Diagnosis Yes Short Term Goals Number of Weeks 3 Decrease Subjective C/O Pain Yes: Improve pain at worst to 4/10 to improve overall QOL Improve Self Care/Self Management Yes Patient to be Ind w/ HEP Yes Data Technical Lead Goals Number of Weeks 6 Decreased Palpation Tenderness Yes: 0-1/4 TTP of C4-C7, left UT/LS mm Increase Range of Motion Yes: Improve cervical AROM to WNL Increase Strength Yes: Improve scapular strength to 4+/5 grossly to assist with posture/function Improve Tolerance to Work Activities Yes: report ability to work a full shift with neck pain 2/10 or less Improve Neck Disability Index Score Yes Decrease Subjective C/O Pain Yes: Improve pain at worst to 2/10 or less to improve overall QOL Patient to be Ind w/ Advanced HEP Yes Outpatient Therapy Plan of Care Treatment Plan May Include Therapeutic Exercise Including Home Yes Exercise Program Manual Therapy Techniques Yes Neuromuscular Re-education Yes Therapeutic Activities to Return to Yes Previous Functional/Work Level ADL/Self Care Education Yes Mechanical Traction Yes Dry Needling Yes Thermal Modalities Yes Electrical Stimulation Yes Ultrasound/Phonophoresis Yes Iontophoresis Yes Vasopneumatic Compression Pump Yes Massage Yes Eval/Re-Eval Yes Frequency Times per week 2 Duration Number of Weeks 4-6 Addendums This patient is a candidate for social No or vocational rehab? Patient/Guardian verbally acknowledges Yes understanding of treatment program and consents to further treatment? Patient/Guardian verbally acknowledges Yes understanding of diagnosis, prognosis and goals for treatment? Eval Complexity PT Charges 68528 - Low Complexity PHYSICIAN CERTIFICATION: I certify the specified therapy services for Momo Edgardo Mo II are required, authorized, and reviewed every 30 days.
--- NOTE | 2024-01-25 17:54 | HMH.RHREAS ---
Rehab Reassessment Rehab OP Re-assessment Start: 12/21/23 16:47 Freq: Status: Active Protocol: Document 01/25/24 16:54 RAMILA (Rec: 01/25/24 17:54 NISHMELISSA [id number]) E-signed By Ana Jane, PT Neck Disability Index Neck Disability Index Section 1: Pain Intensity I have no pain at the moment Section 2: Personal Care (washing, I can look after myself dressing, etc.) normally without causing extra pain Section 3: Lifting I can lift heavy weights without extra pain Section 4: Reading I can read as much as I want to with slight pain in my neck Section 5: Headaches I have slight headaches, which come infrequently Section 6: Concentration I can concentrate fully when I want to with no difficulty Section 7: Work I can do as much work as I want to Section 8: Driving I can drive my car as long as I want with slight pain in my neck Section 9: Sleeping My sleep is slightly disturbed (less than 1 hr sleepless) Section 10: Recreation I am able to engage in all my recreation activities with some pain in NDI Score 5 Rehab Re-assessment Subjective Subjective Pt reports he feels 75% improved since starting PT. Pt reports less frequent headaches overall but states he has had a couple tension like headaches within the last week rated 5-6/10 on VAS at worst. Pt reports he notices headaches usually occur at the end of the day. Pt reports he has been stressed with life and work. Pt denies neck pain recently. Pt reports compliance with HEP. Objective Objective Notes Palpation: 08/27 TTP L TP C4-C6 Cervical AROM: 55 flex, 60 ext , 60 LF, 80 rot Scapular strength: 4+/5 grossly Assessment Progress Assessment Progressing as Expected Assessment Notes Pt has attended 6 PT visits consisting of aerobic exercise , cerivcothoracic mobility, cervical stretching/ strengthening, scapular strengthening, and HEP with good tolerance. Pt demonstrated improved cervical AROM, scapular strength, tenderness to palpation and NDI score this date compared to the initial evaluation. Pt met all PT goals and is appropriate to discharge to independent [facility]. Patient goals met ST/3 LT/7 Goals Not Met n/a Revised Goals n/a Plan Plan Discharge to independent HEP Time and Billing Re-Eval Time 12 Re-Eval Billing Units 1 PHYSICIAN CERTIFICATION: I certify the specified therapy services for Momo Edgardo Mo II are required, authorized, and reviewed every 30 days.
== END 2024-01-25 17:05 | disposition home or self-care (01) ==
LOC: PT 17:00
PROVIDERS: Visit Provider Internal Medicine
DX: M54.2 Cervicalgia (principal)
CPT/HCPCS: 97110; 97163; 97164

== ENCOUNTER 2024-11-18 15:55 | Outpatient (CLI) | payer OTHER, SELFPAY ==
[2024-11-18 18:38] LABS: Basophils # 0.1 K/mm3 (0-0.2); Basophils % 0.7 % (0.1-2.0); Eosinophils # 0.1 K/mm3 (0.0-0.4); Eosinophils % 1.2 % (0.1-12.0); Hematocrit 47.2 % (42.0-52.0); Hemoglobin 16.2 g/dL (14.1-18.0); Lymphocytes # 2.2 K/mm3 (0.7-4.5); Lymphocytes % 22.8 % (10-50); Mean Corpuscular HGB Conc 34.3 g/dL (31.8-35.4); Mean Corpuscular Hemoglobin 29.6 pg (27.0-31.2); Mean Corpuscular Volume 86.1 fl (80-94); Mean Platelet Volume 10.8 fl (7.4-10.4); Monocytes # 0.8 K/mm3 (0.1-1.0); Monocytes % 8.3 % (1.7-9.3); Neutrophils # 6.3 K/mm3 (1.8-7.8); Neutrophils % 66.6 % (37.0-80.0); Platelet Count 265 K/mm3 (142-424); Red Blood Count 5.48 M/mm3 (4.60-6.20); Red Cell Distribution Width 13.2 % (11.5-17.5); White Blood Count 9.5 K/mm3 (4.8-10.8)
[2024-11-18 19:00] LABS: Alanine Aminotransferase 34 U/L (12-78); Albumin Level 4.6 g/dl (3.5-5.0); Albumin/Globulin Ratio 1.6 (1.1-1.8); Alkaline Phosphatase 102 U/L (38-126); Amylase 79 U/L (30-110); Anion Gap 12.5 mEq/L (5-15); Aspartate Amino Transferase 30 U/L (17-59); Bilirubin,Total 1.2 mg/dl (0.2-1.3); Blood Urea Nitrogen 16 mg/dl (9-20); Carbon Dioxide 28 mmol/L (22.0-30.0); Chloride 105 mmol/L (98-107); Chol/HDL Ratio 6.3 (1-3.5); Cholesterol 220 mg/dl (140-200); Estimated Glomerular Filt Rate 81 ml/min (>60); GFR (African American) 98 ML/MIN (>60); Globulin 2.8 g/dL (1.3-3.2); Glucose 88 mg/dl (74-100); HDL Cholesterol 35 mg/dl (40-60); Lipase 48 U/L (23-300); Potassium 4.5 mmoL/L (3.5-5.1); Sodium 141 mmol/L (136-145); Total Protein,Serum 7.4 g/dl (6.3-8.2); Triglycerides 196 mg/dl (30-150); VLDL Cholesterol 39 mg/dL (0-40)
[2024-11-18 19:11] LABS: Direct LDL Cholesterol 131.99 mg/dL (100-129)
[2024-11-18 19:15] LABS: 25-OH Vitamin D, Total 29.5 ng/mL (30-100)
[2024-11-18 19:21] LABS: Hemoglobin A1C 5.5 % (4.0-6.0)
[2024-11-18 19:31] LABS: Prostate Specific Ag Screen 1.2 ng/ml (0.0-4.0); Thyroid Stimulating Hormone 0.65 uIU/mL (0.465-4.68)
[2024-11-18 20:20] LABS: HIV Combo NEGATIVE (Negative)
[2024-11-18 20:29] LABS: Hepatitis C Ab Qual. W/ RFX NEGATIVE (Negative)
== END 2024-11-18 23:59 | disposition home or self-care (01) ==
LOC: LAB.DROPOF 11-19 11:25
PROVIDERS: PCP Family Medicine; Visit Provider Family Medicine
DX: R53.83 Other fatigue (principal); Z12.5 Encounter for screening for malignant neoplasm of prostate; Z13.1 Encounter for screening for diabetes mellitus; E66.3 Overweight; Z11.59 Encounter for screening for other viral diseases
CPT/HCPCS: 80053; 80061; 82150; 82306; 83036; 83690; 84443; 85025; 86803; 87389; G0103